=== PATIENT | female | born 1925 | race Caucasian/White ===

== ENCOUNTER 2016-05-31 17:14 | Inpatient (IN) | payer MEDICARE, BC ==
[~2016-05-31] VITALS: Ht 177.8 cm; Wt 113.2 kg
[~2016-05-31 17:14] MED LIST: GLIM1TAB2 PO; HYDR-971 PO; HYDR25TA9 PO; LOSA100T6 PO; METO50TA2 PO; SIMV20TA3 PO
[2016-05-31 18:58] LABS: CREATININE 1.5 mg/dL (0.6-1.0); GFR 32.8; POTASSIUM 4.4 mmol/L (3.5-5.1)
[2016-05-31 19:03] LABS: BASO % 1 % (0-3); EOS % 2 % (0-3); HEMATOCRIT 47.9 % (36.0-47.0); HEMOGLOBIN 16.1 g/dL (12.0-15.5); LYMPH # 1.7 x10^3/uL (1.0-4.8); LYMPH % 21 % (24-48); MEAN CORPUSCULAR HEMOGLOBIN 30 pg (25-35); MEAN CORPUSCULAR HGB CONC 34 g/dL (31-37); MEAN CORPUSCULAR VOLUME 89 fL (79-100); MONO % 8 % (0-9); NEUT % 69 % (31-73); PLATELET COUNT 164 x10^3/uL (140-400); RED BLOOD COUNT 5.35 x10^6/uL (3.50-5.40); RED CELL DISTRIBUTION WIDTH 13.9 % (11.5-14.5); WHITE BLOOD COUNT 8.2 x10^3/uL (4.0-11.0)
[2016-05-31 19:04] LABS: ALBUMIN 3.7 g/dL (3.4-5.0); ALBUMIN/GLOBULIN RATIO 0.9 (1.0-1.7); TOTAL BILIRUBIN 0.6 mg/dL (0.2-1.0)
[2016-05-31 19:25] LABS: OBC FLU VALID
[2016-05-31 19:37] LABS: BILIRUBIN,URINE NEGATIVE (NEG); GLUCOSE,URINE NEGATIVE (NEG); NITRITE,URINE NEGATIVE (NEG); PH,URINE 5.5; PROTEIN,URINE NEGATIVE (NEG-TRACE)
[2016-05-31 19:45] LABS: BACTERIA,URINE FEW /HPF (0-FEW); SQUAMOUS EPITHELIAL CELL,UR FEW /LPF; WBC,URINE 0 /HPF (0-4)
[2016-05-31] MEDS ORDERED: IV NORMAL SALINE 1000ML BAG 1,000 ML IV ONE (20:45)
[2016-05-31] MEDS ORDERED: ACET325T9 PO (21:59)
[2016-05-31 22:00] VITALS: BP 139/77
--- NOTE | 2016-05-31 22:04 | RAD ---
PROCEDURE Nuchal medicine V/Q scan HISTORY Dyspnea and elevated D-dimer TECHNIQUE 15.0 millicuries of xenon 133 gas was administered by inhalation and spot views were obtained on a gamma camera for a ventilation study. 5.0 millicuries of technetium 99 M maa was administered intravenously and spot views were obtained on a gamma camera for a perfusion examination. COMPARISON Correlation is made with the same-day chest x-ray. FINDINGS There is poor perfusion of the right lung. There is a large wedge-shaped defect in the lateral left lung. IMPRESSION High probability for pulmonary embolism. Electronically signed by: Donald Sams MD (May 31, 2016 22:04:21)
[2016-05-31 22:23] LABS: INR 1.2 (0.8-1.1)
[2016-05-31] MEDS ORDERED: HEPARIN for IV BOLUS 10,000 UNIT/10 ML VIAL. IV ONE (22:30)
[2016-05-31] MEDS ORDERED: HEPARIN 25,000UTS/500ML PREMIX 500 ML IV PRN (22:30)
[2016-05-31] MEDS ORDERED: HEPARIN for IV BOLUS 10,000 UNIT/10 ML VIAL. IV PRN ×2 (22:30)
[2016-05-31] MEDS ORDERED: ACETAMINOPHEN 325 MG TABLET. PO PRN (22:45)
[2016-05-31] MEDS ORDERED: ENOXAPARIN ** NOTE DOSE ** SYRINGE SQ ONE (23:00)
[2016-05-31] MEDS ORDERED: ENOXAPARIN ** NOTE DOSE ** SYRINGE SQ SCH (23:00)
[2016-05-31] MEDS: SIMVASTATIN 20 MG TABLET PO SCH (23:08)
--- NOTE | 2016-05-31 23:44 | ED.ADGEN ---
Past Medical History Past Medical History: Cancer, Diabetes-Type I, High Cholesterol, Hypertension, Other Additional Past Medical Histor: BREAST CA, NEUROPATHY Past Surgical History: Appendectomy, Cholecystectomy, Hysterectomy, Other Additional Past Surgical Histo: LUMPECTOMY LT BREAST, LT KIDNEY REMOVED, BI LAT KNEE REPLACEMENT, BACK SX, Alcohol Use: Rarely Drug Use: None Adult General Chief Complaint Chief Complaint: SHORTNESS OF BREATH HPI HPI Patient is a 89 year old woman, history of breast cancer status post treatment in remission, hypertension, hyperlipidemia, single kidney, who presents to the emergency department with complaint of shortness of breath over the past 5 days. Denies any sick contacts or exposures, any cough, any fevers or chills, any history of DVT or PE, any recent travel or surgery. She states the shortness of breath is worse with activity, improved when lying down. No chest pain. States that when she walks from her living room to her kitchen, she is "gasping for breath". Patient was seen by her primary care provider yesterday, and had laboratory studies done, was contacted and told that her d-dimer was very elevated and was told to come to the ED for additional evaluation. No swelling of the extremities. No weakness numbness or tingling. Review of Systems Review of Systems Constitutional: Denies fever or chills. [] Eyes: Denies change in visual acuity. [] HENT: Denies nasal congestion or sore throat. [] Respiratory: Denies cough, clinics shortness of breath. Cardiovascular: Denies chest pain or edema. [] GI: Denies abdominal pain, nausea, vomiting, bloody stools or diarrhea. [] : Denies dysuria. [] Musculoskeletal: Denies back pain or joint pain. [] Integument: Denies rash. [] Neurologic: Denies headache, focal weakness or sensory changes. [] Endocrine: Denies polyuria or polydipsia. [] Lymphatic: Denies swollen glands. [] Psychiatric: Denies depression or anxiety. [] Allergies Allergies Allergies Coded Allergies Type Severity Reaction Last Updated Verified Penicillins Adverse Reaction Mild YEAST INFECTION 02/21/16 Yes Physical Exam Physical Exam Constitutional: Well developed, well nourished, no acute distress, non-toxic appearance. [] HENT: Normocephalic, atraumatic, bilateral external ears normal, oropharynx moist, no oral exudates, nose normal. [] Eyes: PERRLA, EOMI, conjunctiva normal, no discharge. [] Neck: Normal range of motion, no tenderness, supple, no stridor. [] Cardiovascular:Heart rate regular rhythm, no murmur , S1, S2, rubs or gallops. [ ] Lungs & Thorax: Breath sounds diminished throughout, no rhonchi or rales identified. No chest or crepitus or tenderness.] Abdomen: Bowel sounds normal, soft, no tenderness, no rebound, rigidity, no guarding, no masses, no pulsatile masses. [] Skin: Warm, dry, no erythema, no rash. [] Back: No tenderness, no CVA tenderness. [] Extremities: No tenderness, no cyanosis, no clubbing, ROM intact, no edema. Negative Homans sign. [] Neurologic: Alert and oriented X 3, normal motor function, normal sensory function, no focal deficits noted. [] Psychologic: Affect normal, judgement normal, mood normal. [] Current Patient Data Vital Signs Vital Signs Date Time Temp Pulse Resp B/P Pulse Ox O2 Delivery O2 Flow Rate FiO2 05/31/16 19:20 69 184/82 94 Room Air 05/31/16 17:21 97.3 18 97.3 Lab Values Laboratory Tests Test 05/31/16 18:30 05/31/16 18:45 05/31/16 19:11 White Blood Count 8.2x10^3/uL (4.0-11.0) Red Blood Count 5.35x10^6/uL (3.50-5.40) Hemoglobin 16.1g/dL (12.0-15.5) H Hematocrit 47.9% (36.0-47.0) H Mean Corpuscular Volume 89fL (79-100) Mean Corpuscular Hemoglobin 30pg (25-35) Mean Corpuscular Hemoglobin Concent 34g/dL (31-37) Red Cell Distribution Width 13.9% (11.5-14.5) Platelet Count 164x10^3/uL (140-400) Neutrophils (%) (Auto) 69% (31-73) Lymphocytes (%) (Auto) 21% (24-48) L Monocytes (%) (Auto) 8% (0-9) Eosinophils (%) (Auto) 2% (0-3) Basophils (%) (Auto) 1% (0-3) Neutrophils # (Auto) 5.7x10^3uL (1.8-7.7) Lymphocytes # (Auto) 1.7x10^3/uL (1.0-4.8) Monocytes # (Auto) 0.6x10^3/uL (0.0-1.1) Eosinophils # (Auto) 0.1x10^3/uL (0.0-0.7) Basophils # (Auto) 0.0x10^3/uL (0.0-0.2) Prothrombin Time 14.0SEC (11.7-14.0) Prothrombin Time INR 1.2 (0.8-1.1) H PTT 22SEC (24-38) L D-Dimer ([place]) 7.76ug/mlFEU (0.00-0.50) H Sodium Level 140mmol/L (136-145) Potassium Level 4.4mmol/L (3.5-5.1) Chloride Level 105mmol/L (98-107) Carbon Dioxide Level 29mmol/L (21-32) Anion Gap 6 (6-14) Blood Urea Nitrogen 37mg/dL (7-20) H Creatinine 1.5mg/dL (0.6-1.0) H Estimated GFR (Cockcroft-Gault) 32.8 BUN/Creatinine Ratio 25 (6-20) H Glucose Level 123mg/dL (70-99) H Calcium Level 10.0mg/dL (8.5-10.1) Total Bilirubin 0.6mg/dL (0.2-1.0) Aspartate Amino Transferase (AST) 21U/L (15-37) Alanine Aminotransferase (ALT) 16U/L (14-59) Alkaline Phosphatase 118U/L (46-116) H Troponin I Quantitative < 0.017ng/mL (0.000-0.055) UM-Ftu-C-Type Natriuretic Peptide 246pg/mL (0-449) Total Protein 8.0g/dL (6.4-8.2) Albumin 3.7g/dL (3.4-5.0) Albumin/Globulin Ratio 0.9 (1.0-1.7) L Influenza Type A Antigen Negative (NEGATIVE) Influenza Type B Antigen Negative (NEGATIVE) Urine Collection Type Unknown Urine Color Yellow Urine Clarity Clear Urine pH 5.5 Urine Specific [place] 1.020 Urine Protein Negativemg/dL (NEG-TRACE) Urine Glucose (UA) Negativemg/dL (NEG) Urine Ketones (Stick) Negativemg/dL (NEG) Urine Blood Negative (NEG) Urine Nitrite Negative (NEG) Urine Bilirubin Negative (NEG) Urine Urobilinogen Dipstick 1.0mg/dL (0.2 mg/dL) Urine Leukocyte Esterase Negative (NEG) Urine RBC 1-2/HPF (0-2) Urine WBC 0/HPF (0-4) Urine Squamous Epithelial Cells Few/LPF Urine Bacteria Few/HPF (0-FEW) Laboratory Tests 05/31/16 18:30 Laboratory Tests 05/31/16 18:30 EKG EKG ECG: Sinus rhythm, heart rate 68 beats minute, left axis deviation, QTC of 436, [place] of 200, QRS of 82, contour abnormalities noted in the anterior septal leads, abnormal ECG, does not meet STEMI criteria. As interpreted by me. [] Radiology/Procedures Radiology/Procedures Chest x-ray: One view: Normal cardiac silhouette, patient with atelectasis noted in the left lower lobe. No pneumothorax, no effusions, no bony or soft tissue abnormalities verified. As interpreted by me. [] Impressions: [facility] [address] [place], [place] [id number] IMAGING REPORT Signed PATIENT: LINDA CAMPBELL ACCOUNT: [id number] : 1925 LOCATION: [address] [place] [address] AGE: 89 SEX: F EXAM STATUS: ADM IN ORD. PHYSICIAN: OBEY CHRISTIANSON DO REASON: SOB/elevated ddimer PROCEDURE: LUNG VENT/PERFUSION SCAN(VQ) PROCEDURE Nuchal medicine V/Q scan HISTORY Dyspnea and elevated D-dimer TECHNIQUE 15.0 millicuries of xenon 133 gas was administered by inhalation and spot views were obtained on a gamma camera for a ventilation study. 5.0 millicuries of technetium 99 M maa was administered intravenously and spot views were obtained on a gamma camera for a perfusion examination. COMPARISON Correlation is made with the same-day chest x-ray. FINDINGS There is poor perfusion of the right lung. There is a large wedge-shaped defect in the lateral left lung. IMPRESSION High probability for pulmonary embolism. Electronically signed by: Indra Mitchell MD (May 31, 2016 22:04:21) DICTATED and SIGNED BY: INDRA MITCHELL III, MD DATE: 05/31/162202 CC: OBEY CHRISTIANSON DO; MEET REESE Jr, MD ~ Course & Med Decision Making Course & Med Decision Making Pertinent Labs and Imaging studies reviewed. (See chart for details) Patient's oxygen saturation is 96% room air, respiratory rate is 20 and unlabored, heart rate is in the 60s to 70s, she is normotensive in the emergency department. Due to patient having only one kidney, with a creatinine of 1.5, will be unable to obtain CT of the chest to evaluate for PE, patient is agreeable for admission hospital for evaluation of her shortness of breath and dyspnea and exertion, will obtain a VQ scan tonight, and if V/Q scan is negative , proceed with additional evaluation of her shortness of breath, or treat findings a V/Q appropriately. Troponin is negative and the emergency department , creatinine is 1.5 as stated, with a blood urea nitrogen of 37. Influenza swab is negative. Patient initiated on IV hydration. I spoke with the crop and soil technician, who will arrange for the VQ study to be obtained over the next several hours. At this time the patient is resting comfortably, stable in sinus rhythm on the monitor. I did discuss findings as above with Dr. Ontiveros of internal medicine, patient was accepted to her service as a full admission to the medical telemetry floor, with plan to obtain V/Q study, and to proceed with treatment and evaluation as indicated. Patient was transferred for the VQ study , and then onto a floor bed. Results of V/Q study indicated high probability for PE. Nurse April did contact the floor at my request, in order to ensure that information was relayed to the patient, and to make myself available to the patient if she had additional questions. Heparin protocol was ordered. I was informed that Dr. Ontiveros was with the patient and would be initiating anticoagulation. Dragon Disclaimer Dragon Disclaimer This electronic medical record was generated, in whole or in part, using a voice recognition dictation system. Departure Impression: Primary Impression: LEO (dyspnea on exertion) Additional Impressions: Pulmonary embolus History of breast cancer Disposition: 09 ADMITTED INPATIENT Admitting Physician: Other Condition: STABLE Problem Qualifiers Additional Impressions: Pulmonary embolus Pulmonary embolism type: other Chronicity: unspecified Acute cor pulmonale presence: without acute cor pulmonale Qualified Code: I26.99 - Other pulmonary embolism without acute cor pulmonale OBEY CHRISTIANSON DO May 31, 2016 23:43
--- NOTE | 2016-06-01 00:44 | HP ---
ADMIT DATE: 05/31/2016 CHIEF COMPLAINT: Shortness of breath. HISTORY OF PRESENT ILLNESS: The patient is an 89-year-old woman in excellent state of health, who had noted about 2 weeks ago to be dyspneic on exertion. She is doing well at rest, but as soon as she is getting up for actually minimal walking inside her house, she becomes very dyspneic. This had gotten significantly worse on Friday. She, therefore, tried to get an appointment with her primary care physician on Friday, but was unable to get an appointment until her daughter called again to impress the urgency of her symptoms. D-dimer obtained yesterday at her PCP's apparently was very high, number not available here. She presented to the Emergency Room for further workup today. D-dimer here was 7. Because she has a single kidney with a creatinine of 1.6, a CTA was omitted in favor of a VQ scan, which reportedly is positive for PE. 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 FAMILY HISTORY: Significant for father and multiple siblings with CAD. SOCIAL HISTORY: Lives by herself. No toxic habits. ALLERGIES: PENICILLINS (CAUSING YEAST VAGINITIS). MEDICATIONS: Home medications reconciled with MAR. REVIEW OF SYSTEMS: Positive as per HPI. The patient specifically denies any chest pain, cough, fevers, chills, URI symptoms, nausea, vomiting, diarrhea or abdominal pain. Rest of organ system review was completely negative. PHYSICAL EXAMINATION: VITAL SIGNS: Show a blood pressure of 186/84, respiratory rate at 18, pulse at 66, pulse ox at 92% on room air. She is afebrile. GENERAL: This is an obese 89-year-old woman, appearing younger than her stated age, alert and oriented, in no acute distress. HEENT: Shows no scleral icterus. NECK: Supple. LUNGS: Clear to auscultation bilaterally. HEART: Has regular rate and rhythm. ABDOMEN: Has positive bowel sounds, soft and nontender. EXTREMITIES: Show no edema. Large scar over her left upper extremity proximal to her elbow from melanoma resection. EXTREMITIES: Lower extremities show no edema. SKIN: Warm, soft and dry. Multiple keratoses (seborrheic) scattered all over. LABORATORY DATA: CBC with a WBC of 8.2, hemoglobin of 16.1, platelets of 164. Chemistries with a BUN and creatinine of 37 and 1.5. Electrolytes within normal limits. AST and ALT normal, alkaline phosphatase minimally elevated at 118, normal troponin, normal BNP, D-dimer at 7.76, INR at 1.2. Flu A and B negative. RADIOGRAPHIC STUDIES: Chest x-ray reviewed by myself from the Emergency Room shows no cardiopulmonary abnormalities. VQ scan was actually read by the radiologist and showed high probability for pulmonary embolism with poor perfusion in the right lung and a large wedge-shaped defect in the lateral left lung. ASSESSMENT AND PLAN: The patient is an 89-year-old woman with new diagnosis of pulmonary embolism. She will be started on Lovenox and hopefully transition to an oral thrombin inhibitor rather than Coumadin down the road. The etiology of her blood clot is unclear at this point. No lower extremity symptoms have been noted. We will obtain ultrasound of her lower extremities in a.m. Formation of blood clots is somewhat ominous, given her recent history of melanoma. We will treat the pulmonary embolisms for now. She is scheduled to undergo routine scans by her oncologist next month. We will also rule out any underlying heart issues and obtain echo to rule out any thrombi there. We will continue all her home medications for the time being and monitor her blood sugars with insulin sliding scale as well. ALLYN OSORIO MD DR: UR/nts JOB#: [id number] / [id number] MEET Cantrell MD
[2016-06-01 03:59] VITALS: BP 107/55
[2016-06-01] MEDS ORDERED: METOPROLOL TART IMMED RELEASE 50 MG TABLET PO SCH (07:00)
[2016-06-01 07:45] VITALS: BP 173/79
--- NOTE | 2016-06-01 08:31 | RAD ---
Portable chest, 05/31/2016: History: Shortness of breath Comparison is made to a study from 04/23/2004. The heart size and pulmonary vascularity are normal. There is mild apical scarring. No pulmonary infiltrate is seen. There is no evidence of pleural fluid. Moderate spurring is present in the spine. IMPRESSION: No acute cardiopulmonary abnormality is detected.
[2016-06-01] MEDS: GLIMEPIRIDE 2 MG TABLET PO SCH (08:38)
[2016-06-01] MEDS: HYDROCHLOROTHIAZIDE 25 MG TABLET PO SCH (08:40)
[2016-06-01] MEDS: LOSARTAN POTASSIUM 50 MG TABLET. PO SCH (08:40)
[2016-06-01] MEDS: METOPROLOL TART IMMED RELEASE 50 MG TABLET PO SCH (08:41)
[2016-06-01] MEDS: HYDROCODONE/APAP 5/325MG TABLET. PO SCH ×3 (08:41→21:00)
[2016-06-01 11:30] VITALS: BP 151/76
--- NOTE | 2016-06-01 12:10 | EKG ---
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
[2016-06-01 15:10] VITALS: BP 121/63
[2016-06-01] MEDS ORDERED: DABI150C PO (15:43)
[2016-06-01 19:00] VITALS: BP 137/74
[2016-06-01] MEDS: SIMVASTATIN 20 MG TABLET PO SCH (20:26)
--- NOTE | 2016-06-01 21:01 | PDOC ---
PROGRESS NOTES Chief Complaint Chief Complaint LEO ASSESSMENT AND PLAN: 1. PE bilat: started on lovenox with plans to switching to PO pradaxa (renal dosing) on O/P basis. script sent to pharmacy 2. LEO: sl improved. 6 min walk tomorrow to [id number] need for suppl O2. 3. echo pending for AM. 4. Dispo: prob home in AM Vitals Vitals Vital Signs Date Time Temp Pulse Resp B/P Pulse Ox O2 Delivery O2 Flow Rate FiO2 06/01/16 15:10 97.4 73 16 121/63 95 Room Air 97.4 Physical Exam General: Alert, Oriented X3, Cooperative, No acute distress Heart: Regular rate Lungs: Clear Abdomen: Normal bowel sounds, Other Extremities: No clubbing, No edema Skin: No rashes, No significant lesion Labs LABS Laboratory Tests Test 06/01/16 07:51 06/01/16 11:44 06/01/16 16:25 Glucose (Fingerstick) 124mg/dL (70-99) 125mg/dL (70-99) 125mg/dL (70-99) Review of Systems Review of Systems had some pain earlier in distal medial lockett, now resolved. was concerned this may indicate DVT ALLYN OSORIO MD Jun 01, 2016 21:01
[2016-06-01] MEDS: ZOLPIDEM 5 MG TABLET. PO SCH (21:22)
[2016-06-01] MEDS: ENOXAPARIN ** NOTE DOSE ** SYRINGE SQ SCH (21:23)
[2016-06-01 23:00] VITALS: BP 130/67
[2016-06-02 03:00] VITALS: BP 133/78
[2016-06-02 07:00] VITALS: BP 135/81
[2016-06-02] MEDS: HYDROCODONE/APAP 5/325MG TABLET. PO SCH ×2 (09:00→14:00)
[2016-06-02] MEDS: ENOXAPARIN ** NOTE DOSE ** SYRINGE SQ SCH ×2 (09:15→20:56)
[2016-06-02] MEDS: HYDROCHLOROTHIAZIDE 25 MG TABLET PO SCH (09:15)
[2016-06-02] MEDS: METOPROLOL TART IMMED RELEASE 50 MG TABLET PO SCH (09:16)
[2016-06-02] MEDS: GLIMEPIRIDE 2 MG TABLET PO SCH (09:16)
[2016-06-02] MEDS: LOSARTAN POTASSIUM 50 MG TABLET. PO SCH (09:16)
[2016-06-02 11:12] VITALS: BP 131/67
[2016-06-02 15:09] VITALS: BP 146/73
--- NOTE | 2016-06-02 15:09 | CARD ---
APPROVED REPORT EXAM: Two-dimensional and M-mode echocardiogram with Doppler and color Doppler. Other Information Quality : LimitedHR: 80bpm Rhythm : NSR INDICATION SOB 2D DIMENSIONS RVDd2.5 (2.9-3.5cm)Left Atrium(2D)4.2 (1.6-4.0cm) IVSd1.0 (0.7-1.1cm)Aortic Root(2D)3.1 (2.0-3.7cm) LVDd3.5 (3.9-5.9cm)LVOT Diameter2.3 (1.8-2.4cm) PWd0.1 (0.7-1.1cm)LVDs2.5 (2.5-4.0cm) FS (%) 29.2 %SV29.6 ml LVEF(%)57.0 (>50%) Aortic Valve AoV Peak Armando.172.9cm/sAoV VTI35.3cm AO Peak GR.12.0mmHgLVOT VTI 25.96cm AO Mean GR.8mmHg Mitral Valve MV E Woilajwe41.1cm/sMV E Peak Gr.7mmHg MV DECEL [id number] A Nqxdoddd954.2cm/s MV E Mean Gr.2mmHgE/A Ratio0.7 MV A [id number] TDI Lateral E' P. V9.78cm/sMedial E' P. V7.79cm/s E/Lateral E'8.3E/Medial E'10.4 Pulmonary Vein S1 Xfkpuuzq77.5cm/sS2 Gfoknwvw20.14cm/s D2 Tysfxqtu45.1cm/sPVa [id number] LEFT VENTRICLE The left ventricle is normal size. There is normal left ventricular wall thickness. The left ventricu lar systolic function is normal. The Ejection Fraction is 55-60%. There is normal LV segmental wall m otion. Transmitral Doppler flow pattern is Grade I-abnormal relaxation pattern. RIGHT VENTRICLE The right ventricle is normal size. There is normal right ventricular wall thickness. The right ventr icular systolic function is normal. ATRIA The left atrium is mildly dilated. The right atrium size is normal. The interatrial septum is intact with no evidence for an atrial septal defect or patent foramen ovale as noted on 2-D or Doppler imagi ng. AORTIC VALVE The aortic valve is not well visualized. Doppler and Color Flow revealed no significant aortic regurg itation. There is no significant aortic valvular stenosis. MITRAL VALVE The mitral valve is not well visualized. There is no evidence of mitral valve prolapse at exam time. There is no mitral valve stenosis. Doppler and Color Flow revealed no mitral valve regurgitation note d. TRICUSPID VALVE The tricuspid valve is not well visualized. Doppler and Color Flow revealed trace tricuspid valve reg urgitation. PULMONIC VALVE The pulmonic valve is not well visualized. Doppler and Color Flow revealed no pulmonic valvular regur gitation. There is no pulmonic valvular stenosis. GREAT VESSELS The aortic root is normal in size. The ascending aorta is normal in size. The pulmonary artery is nor mal. The IVC is normal in size and collapses >50% with inspiration. PERICARDIAL EFFUSION There is no evidence of significant pericardial effusion. Critical Notification Critical Value: No <Conclusion> The left ventricular systolic function is normal. The Ejection Fraction is 55-60%. There is normal LV segmental wall motion. Transmitral Doppler flow pattern is Grade I-abnormal relaxation pattern. Trace tricuspid valve regurgitation. There is no evidence of significant pericardial effusion.
--- NOTE | 2016-06-02 16:26 | PDOC ---
PROGRESS NOTES Chief Complaint Chief Complaint LEO ASSESSMENT AND PLAN: 1. PE bilat: started on lovenox with plans to switching to PO pradaxa (renal dosin mg bid) on O/P basis. 2. LEO: sl improved. 6 min walk tomorrow to assess need for suppl O2. 3. Echo WNL 4. Dispo: home in AM Vitals Vitals Vital Signs Date Time Temp Pulse Resp B/P Pulse Ox O2 Delivery O2 Flow Rate FiO2 06/02/16 15:09 97.7 64 18 146/73 94 Room Air 97.7 Physical Exam General: Alert, Oriented X3, Cooperative, No acute distress Heart: Regular rate Lungs: Clear Abdomen: Normal bowel sounds, Other Extremities: No clubbing, No edema Skin: No rashes, No significant lesion Labs LABS Laboratory Tests Test 06/01/16 16:25 06/01/16 21:06 06/02/16 07:22 06/02/16 10:36 Glucose (Fingerstick) 125mg/dL (70-99) 200mg/dL (70-99) 142mg/dL (70-99) 245mg/dL (70-99) Test 06/02/16 15:58 Glucose (Fingerstick) 99mg/dL (70-99) Review of Systems Review of Systems LEO improving, but very short-winded with washing up this AM Comment Review of Relevant I have reviewed the following items harrison (where applicable) has been applied. Labs Laboratory Tests Test 05/31/16 18:30 05/31/16 18:45 05/31/16 19:11 06/01/16 07:51 White Blood Count 8.2x10^3/uL (4.0-11.0) Red Blood Count 5.35x10^6/uL (3.50-5.40) Hemoglobin 16.1g/dL (12.0-15.5) Hematocrit 47.9% (36.0-47.0) Mean Corpuscular Volume 89fL (79-100) Mean Corpuscular Hemoglobin 30pg (25-35) Mean Corpuscular Hemoglobin Concent 34g/dL (31-37) Red Cell Distribution Width 13.9% (11.5-14.5) Platelet Count 164x10^3/uL (140-400) Neutrophils (%) (Auto) 69% (31-73) Lymphocytes (%) (Auto) 21% (24-48) Monocytes (%) (Auto) 8% (0-9) Eosinophils (%) (Auto) 2% (0-3) Basophils (%) (Auto) 1% (0-3) Neutrophils # (Auto) 5.7x10^3uL (1.8-7.7) Lymphocytes # (Auto) 1.7x10^3/uL (1.0-4.8) Monocytes # (Auto) 0.6x10^3/uL (0.0-1.1) Eosinophils # (Auto) 0.1x10^3/uL (0.0-0.7) Basophils # (Auto) 0.0x10^3/uL (0.0-0.2) Prothrombin Time 14.0SEC (11.7-14.0) Prothromb Time International Ratio 1.2 (0.8-1.1) Activated Partial Thromboplast Time 22SEC (24-38) D-Dimer ([place]) 7.76ug/mlFEU (0.00-0.50) Sodium Level 140mmol/L (136-145) Potassium Level 4.4mmol/L (3.5-5.1) Chloride Level 105mmol/L (98-107) Carbon Dioxide Level 29mmol/L (21-32) Anion Gap 6 (6-14) Blood Urea Nitrogen 37mg/dL (7-20) Creatinine 1.5mg/dL (0.6-1.0) Estimated GFR (Cockcroft-Gault) 32.8 BUN/Creatinine Ratio 25 (6-20) Glucose Level 123mg/dL (70-99) Calcium Level 10.0mg/dL (8.5-10.1) Total Bilirubin 0.6mg/dL (0.2-1.0) Aspartate Amino Transf (AST/SGOT) 21U/L (15-37) Alanine Aminotransferase (ALT/SGPT) 16U/L (14-59) Alkaline Phosphatase 118U/L (46-116) Troponin I Quantitative < 0.017ng/mL (0.000-0.055) RX-Hyc-T-Type Natriuretic Peptide 246pg/mL (0-449) Total Protein 8.0g/dL (6.4-8.2) Albumin 3.7g/dL (3.4-5.0) Albumin/Globulin Ratio 0.9 (1.0-1.7) Influenza Type A Antigen Negative (NEGATIVE) Influenza Type B Antigen Negative (NEGATIVE) Urine Collection Type Unknown Urine Color Yellow Urine Clarity Clear Urine pH 5.5 Urine Specific [place] 1.020 Urine Protein Negativemg/dL (NEG-TRACE) Urine Glucose (UA) Negativemg/dL (NEG) Urine Ketones (Stick) Negativemg/dL (NEG) Urine Blood Negative (NEG) Urine Nitrite Negative (NEG) Urine Bilirubin Negative (NEG) Urine Urobilinogen Dipstick 1.0mg/dL (0.2 mg/dL) Urine Leukocyte Esterase Negative (NEG) Urine RBC 1-2/HPF (0-2) Urine WBC 0/HPF (0-4) Urine Squamous Epithelial Cells Few/LPF Urine Bacteria Few/HPF (0-FEW) Glucose (Fingerstick) 124mg/dL (70-99) Test 06/01/16 11:44 06/01/16 16:25 06/01/16 21:06 06/02/16 07:22 Glucose (Fingerstick) 125mg/dL (70-99) 125mg/dL (70-99) 200mg/dL (70-99) 142mg/dL (70-99) Test 06/02/16 10:36 06/02/16 15:58 Glucose (Fingerstick) 245mg/dL (70-99) 99mg/dL (70-99) Laboratory Tests Test 06/01/16 16:25 06/01/16 21:06 06/02/16 07:22 06/02/16 10:36 Glucose (Fingerstick) 125mg/dL (70-99) 200mg/dL (70-99) 142mg/dL (70-99) 245mg/dL (70-99) Test 06/02/16 15:58 Glucose (Fingerstick) 99mg/dL (70-99) Medications Current Medications Sodium Chloride (Iv Sodium Chloride 0.9% 1000ml Bag) 1,000 ml @ 75 mls/hr 1X ONCE IV Last administered on 05/31/16t 21:02; Start 05/31/16 at 20:45; Stop at 10:04; Status DC Heparin Sodium (Porcine) 8800 unit 8,800 unit 1X ONCE IV ; Start 05/31/16 at 22 :30; Stop 05/31/16 at 22:45; Status DC Heparin Sodium/ Dextrose 500 ml @ 0 mls/hr CONT PRN IV SEE I/O RECORD; Start at 22:30; Status Cancel Heparin Sodium (Porcine) 3,300 unit PRN Q6HRS PRN IV FOR UFH LEVEL LESS THAN 0.2; Start 05/31/16 at 22:30; Status Cancel Heparin Sodium (Porcine) 1,650 unit PRN Q6HRS PRN IV FOR UFH LEVEL 0.2 - 0.29; Start 05/31/16 at 22:30; Status Cancel Warfarin Sodium (Coumadin Per Pharmacy) 1 each PRN DAILY PRN MC PER PROTOCOL; Start 05/31/16 at 22:15; Status UNV Acetaminophen (Tylenol) 650 mg PRN QHS PRN PO INSOM; Start 05/31/16 at 22:45 Hydrochlorothiazide (Hydrodiuril) 25 mg DAILY PO Last administered on 09:15; Start 06/01/16 at 09:00 Acetaminophen/ Hydrocodone Bitart (Lortab 5/325) 1 tab TID PO ; Start 06/01/16 at 09:00; Stop 06/02/16 at 15:54; Status DC Metoprolol Tartrate (Lopressor) 50 mg DAILY07 PO ; Start 06/01/16 at 07:00; Stop 06/01/16 at 07:00; Status DC Simvastatin (Zocor) 20 mg HS PO Last administered on 06/01/16 20:26; Start at 23:00 Glimepiride (Amaryl) 1 mg DAILY PO Last administered on 06/02/16 09:16; Start 06/01/16 at 09:00 Losartan Potassium (Cozaar) 100 mg DAILY PO Last administered on 06/02/16 09: 16; Start 06/01/16 at 09:00 Enoxaparin Sodium (Lovenox 120mg Syringe) 120 mg Q12HR SQ ; Start 05/31/16 at 23 :00; Stop 05/31/16 at 23:00; Status DC Enoxaparin Sodium (Lovenox 120mg Syringe) 110 mg ONCE ONCE SQ Last administered on 05/31/16 23:09; Start 05/31/16 at 23:00; Stop 05/31/16 at 23:01 ; Status DC Metoprolol Tartrate (Lopressor) 50 mg DAILY PO Last administered on 06/02/16 09:16; Start 06/01/16 at 09:00 Enoxaparin Sodium (Lovenox 60mg Syringe) 60 mg Q12HR SQ Last administered on 09:15; Start 06/01/16 at 21:15 Zolpidem Tartrate (Ambien) 5 mg QHS PO Last administered on 06/01/16 21:22; Start 06/01/16 at 21:15 Active Scripts Active Pradaxa (Dabigatran Etexilate Mesylate) 150 Mg Capsule 0.5 Cap PO BID Reported Tylenol (Acetaminophen) 325 Mg Tablet 1-2 Tab PO PRN QHS PRN [place] 5-325 Tablet (Acetaminophen/Hydrocodone Bitart) 1 Each Tablet 1 Tab PO TID Losartan Potassium 100 Mg Tablet 100 Mg PO DAILY Glimepiride 1 Mg Tablet 1 Mg PO DAILY Simvastatin 20 Mg Tablet 20 Mg PO HS Metoprolol Tartrate 50 Mg Tablet 50 Mg PO DAILY07 Hydrochlorothiazide Tablet (Hydrochlorothiazide) 25 Mg Tablet 25 Mg PO DAILY Vitals/I & O Vital Sign - Last 24 Hours 06/01/16 06/01/16 06/02/16 06/02/16 19:00 23:00 03:00 07:00 Temp 98.6 97.9 97.6 97.7 98.6 97.9 97.6 97.7 Pulse 72 77 68 73 Resp 16 18 16 18 B/P 137/74 130/67 133/78 135/81 Pulse Ox 93 96 92 96 O2 Delivery Room Air 06/02/16 06/02/16 06/02/16 06/02/16 08:00 09:16 09:16 11:12 Temp 97.7 97.7 Pulse 73 73 71 Resp 18 B/P 135/81 135/81 131/67 Pulse Ox 96 O2 Delivery Room Air Room Air 06/02/16 15:09 Temp 97.7 97.7 Pulse 64 Resp 18 B/P 146/73 Pulse Ox 94 O2 Delivery Room Air Intake and Output 06/01/16 06/01/16 06/02/16 15:00 23:00 07:00 Intake Total 900 ml 440 ml Balance 900 ml 440 ml ALLYN OSORIO MD Jun 02, 2016 16:26
[2016-06-02 19:00] VITALS: BP 139/69
[2016-06-02] MEDS: ZOLPIDEM 5 MG TABLET. PO SCH (20:56)
[2016-06-02] MEDS: SIMVASTATIN 20 MG TABLET PO SCH (20:56)
[2016-06-02 22:55] VITALS: BP 126/73
[2016-06-03 03:00] VITALS: BP 122/81
[2016-06-03 07:00] VITALS: BP 155/72
[2016-06-03] MEDS: LOSARTAN POTASSIUM 50 MG TABLET. PO SCH (09:21)
[2016-06-03] MEDS: METOPROLOL TART IMMED RELEASE 50 MG TABLET PO SCH (09:21)
[2016-06-03] MEDS: HYDROCHLOROTHIAZIDE 25 MG TABLET PO SCH (09:21)
[2016-06-03] MEDS: ENOXAPARIN ** NOTE DOSE ** SYRINGE SQ SCH (09:21)
[2016-06-03] MEDS: GLIMEPIRIDE 2 MG TABLET PO SCH (09:21)
--- NOTE | 2016-06-03 11:10 | PDOC ---
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 with minor exertion Never had it before NO triggering factors Mentions a family with leg clots hx echo ok PLAN: Involve pulmo dc lovenox - solitary kidney To start heparin gtt - dw pulmo and rN Check renal sono Dw pt and family Add pT/OT mIght need emeli heck 6MW - ordered, not yet done Vitals Vitals Vital Signs Date Time Temp Pulse Resp B/P Pulse Ox O2 Delivery O2 Flow Rate FiO2 06/03/16 09:21 68 155/72 06/03/16 07:00 97.7 17 96 Room Air 97.7 Physical Exam General: Alert, Oriented X3, Cooperative, No acute distress Heart: Regular rate Lungs: Clear Abdomen: Normal bowel sounds, Other Extremities: No clubbing, No edema Skin: No rashes, No significant lesion Labs LABS Laboratory Tests Test 06/02/16 15:58 06/02/16 20:59 06/03/16 07:05 Glucose (Fingerstick) 99mg/dL (70-99) 243mg/dL (70-99) 117mg/dL (70-99) Review of Systems Review of Systems soa, no cp, leg swelling, mild, no fevers Assessment and Plan Assessmemt and Plan Problems Medical Problems: (1) LEO (dyspnea on exertion) Status: Acute (2) History of breast cancer Status: Acute (3) Pulmonary embolism Status: Acute (4) Pulmonary embolus Status: Acute Problems: Comment Review of Relevant I have reviewed the following items harrison (where applicable) has been applied. Labs Laboratory Tests Test 06/01/16 11:44 06/01/16 16:25 06/01/16 21:06 06/02/16 07:22 Glucose (Fingerstick) 125mg/dL (70-99) 125mg/dL (70-99) 200mg/dL (70-99) 142mg/dL (70-99) Test 06/02/16 10:36 06/02/16 15:58 06/02/16 20:59 06/03/16 07:05 Glucose (Fingerstick) 245mg/dL (70-99) 99mg/dL (70-99) 243mg/dL (70-99) 117mg/dL (70-99) Laboratory Tests Test 06/02/16 15:58 06/02/16 20:59 06/03/16 07:05 Glucose (Fingerstick) 99mg/dL (70-99) 243mg/dL (70-99) 117mg/dL (70-99) Medications Current Medications Sodium Chloride (Iv Sodium Chloride 0.9% 1000ml Bag) 1,000 ml @ 75 mls/hr 1X ONCE IV Last administered on 05/31/16 21:02; Start 05/31/16 at 20:45; Stop at 10:04; Status DC Heparin Sodium (Porcine) 8800 unit 8,800 unit 1X ONCE IV ; Start 05/31/16 at 22 :30; Stop 05/31/16 at 22:45; Status DC Heparin Sodium/ Dextrose 500 ml @ 0 mls/hr CONT PRN IV SEE I/O RECORD; Start at 22:30; Status Cancel Heparin Sodium (Porcine) 3,300 unit PRN Q6HRS PRN IV FOR UFH LEVEL LESS THAN 0.2; Start 05/31/16 at 22:30; Status Cancel Heparin Sodium (Porcine) 1,650 unit PRN Q6HRS PRN IV FOR UFH LEVEL 0.2 - 0.29; Start 05/31/16 at 22:30; Status Cancel Warfarin Sodium (Coumadin Per Pharmacy) 1 each PRN DAILY PRN MC PER PROTOCOL; Start 05/31/16 at 22:15; Status UNV Acetaminophen (Tylenol) 650 mg PRN QHS PRN PO INSOM; Start 05/31/16 at 22:45 Hydrochlorothiazide (Hydrodiuril) 25 mg DAILY PO Last administered on 09:21; Start 06/01/16 at 09:00 Acetaminophen/ Hydrocodone Bitart (Lortab 5/325) 1 tab TID PO ; Start 06/01/16 at 09:00; Stop 06/02/16 at 15:54; Status DC Metoprolol Tartrate (Lopressor) 50 mg DAILY07 PO ; Start 06/01/16 at 07:00; Stop 06/01/16 at 07:00; Status DC Simvastatin (Zocor) 20 mg HS PO Last administered on 06/02/16 20:56; Start at 23:00 Glimepiride (Amaryl) 1 mg DAILY PO Last administered on 06/03/16 09:21; Start 06/01/16 at 09:00 Losartan Potassium (Cozaar) 100 mg DAILY PO Last administered on 06/03/16 09: 21; Start 06/01/16 at 09:00 Enoxaparin Sodium (Lovenox 120mg Syringe) 120 mg Q12HR SQ ; Start 05/31/16 at 23 :00; Stop 05/31/16 at 23:00; Status DC Enoxaparin Sodium (Lovenox 120mg Syringe) 110 mg ONCE ONCE SQ Last administered on 05/31/16 23:09; Start 05/31/16 at 23:00; Stop 05/31/16 at 23:01 ; Status DC Metoprolol Tartrate (Lopressor) 50 mg DAILY PO Last administered on 06/03/16 09:21; Start 06/01/16 at 09:00 Enoxaparin Sodium (Lovenox 60mg Syringe) 60 mg Q12HR SQ Last administered on 09:21; Start 06/01/16 at 21:15 Zolpidem Tartrate (Ambien) 5 mg QHS PO Last administered on 06/02/16 20:56; Start 06/01/16 at 21:15 Active Scripts Active Pradaxa (Dabigatran Etexilate Mesylate) 150 Mg Capsule 0.5 Cap PO BID Reported Tylenol (Acetaminophen) 325 Mg Tablet 1-2 Tab PO PRN QHS PRN [place] 5-325 Tablet (Acetaminophen/Hydrocodone Bitart) 1 Each Tablet 1 Tab PO TID Losartan Potassium 100 Mg Tablet 100 Mg PO DAILY Glimepiride 1 Mg Tablet 1 Mg PO DAILY Simvastatin 20 Mg Tablet 20 Mg PO HS Metoprolol Tartrate 50 Mg Tablet 50 Mg PO DAILY07 Hydrochlorothiazide Tablet (Hydrochlorothiazide) 25 Mg Tablet 25 Mg PO DAILY Vitals/I & O Vital Sign - Last 24 Hours 06/02/16 06/02/16 06/02/16 06/02/16 11:12 15:09 19:00 20:07 Temp 97.7 97.7 98.1 97.7 97.7 98.1 Pulse 71 64 71 Resp 18 18 18 B/P 131/67 146/73 139/69 Pulse Ox 96 94 95 O2 Delivery Room Air Room Air Room Air Room Air 06/02/16 06/03/16 06/03/16 06/03/16 22:55 03:00 07:00 09:21 Temp 97.9 97.9 97.7 97.9 97.9 97.7 Pulse 79 71 68 68 Resp 18 19 17 B/P 126/73 122/81 155/72 155/72 Pulse Ox 93 94 96 O2 Delivery Room Air Room Air Room Air 06/03/16 09:21 Pulse 68 B/P 155/72 Intake and Output 06/02/16 06/02/16 06/03/16 15:01 23:01 07:01 Intake Total 240 ml 840 ml Output Total 600 ml Balance 240 ml 240 ml KADIE NGUYEN MD Jun 03, 2016 11:10
[2016-06-03] MEDS ORDERED: HEPARIN for IV BOLUS 10,000 UNIT/10 ML VIAL. IV PRN ×2 (11:15)
[2016-06-03 11:17] VITALS: BP 148/73
--- NOTE | 2016-06-03 11:58 | PDOC ---
Provider Note Provider Note dictated see orders AGGIE LYNN MD Jun 03, 2016 11:58
[2016-06-03] MEDS: HEPARIN 25,000UTS/500ML PREMIX 500 ML IV PRN (11:59)
--- NOTE | 2016-06-03 12:55 | CONS ---
DATE OF CONSULTATION: ATTENDING PHYSICIAN: Dr. Ontiveros. REASON FOR CONSULTATION: Pulmonary embolism. HISTORY OF PRESENT ILLNESS: The patient is a pleasant 89-year-old female who is still very active and in good health. She has a history of multiple cancers including breast cancer, status post treatment and remission many years ago. She also has a history of melanoma resected from her left upper extremity last year and also history of renal cancer, status post nephrectomy. She was brought into the hospital after she complained of shortness of breath over the past week or so. She had no chest pain. She is not fully ambulatory. But, usually does her activities of daily living. The patient has no known prior history of deep vein thrombosis or pulmonary embolism. Because of her renal compromise, CTA of the chest was not done and ____ VQ scan was done. I reviewed the CT chest, there was poor perfusion in the right lung and there was a right large wedge-shaped defect in the left lung and these were consistent with high probability for pulmonary embolism. The patient was started on Lovenox and I have been asked to see her for further evaluation. PAST MEDICAL HISTORY: Significant for history of breast cancer with partial mastectomy and axillary node dissection in 1992. History of renal cell cancer treated with left nephrectomy in 2009. History of melanoma of the left upper extremity excised in 12/2015. According to her, the last PET scan had shown no recurrence in 2016. PAST SURGICAL HISTORY: History of surgeries as discussed above. FAMILY HISTORY: No family history of thromboembolic disease. SOCIAL HISTORY: Lives by herself. No tobacco or alcohol use. ALLERGIES: PENICILLIN, WHICH CAUSES YEAST VAGINITIS. MEDICATIONS: Reviewed as listed in the MRAD. REVIEW OF SYSTEMS: A 14-point system obtained. Pertinent positives discussed in my history of present illness, otherwise noncontributory. All systems that were negative were reviewed as well. PHYSICAL EXAMINATION: VITAL SIGNS: Blood pressure 148/73. She has a pulse ox of 96% on room air, afebrile. HEENT: Sclerae nonicteric. NECK: Supple. LUNGS: Clear. CARDIOVASCULAR: Regular. ABDOMEN: Soft, nontender. EXTREMITIES: With no pitting edema. LABORATORY DATA: Reviewed. Influenza screen is negative. Her BUN is 37 and creatinine of ____. INR 1.2. D-dimer is 7.7. WBC 8.2, hemoglobin 16.1 and platelets are 164. IMPRESSION: 1. Acute pulmonary embolism in a patient who is somewhat sedentary but reasonable active, in view of her age. She does have a history of multiple cancers including melanoma in 12/2015, history of breast cancer status post lumpectomy on the left and axillary lymph node dissection in 1992 and history of renal cancer treated with left nephrectomy in 2009. At this point, I would like to do a CT chest, abdomen and pelvis without contrast to rule out any recurrent malignancy, which could be a potential risk factor in her case. 2. No significant history of tobacco use. 3. History of multiple cancers including breast cancer, renal cancer and melanoma, all reportedly in remission per history. RECOMMENDATIONS: 1. Discussed with the patient and the daughter in detail. We will obtain noncontrast CT chest, abdomen and pelvis to rule out any recurrent malignancies as discussed above. 2. Discontinue Lovenox due to renal insufficiency, placed her on heparin protocol. 3. She could go home on Eliquis or Xarelto. I did discuss with her regarding the long-term risk of being on anticoagulation and benefits and she agrees to pursue with it for now. 4. The duration of treatment will depend on any recurrent malignancy and if that is the case, then she would need lifelong anticoagulation. 5. Obtain tumor marker for breast cancer. 6. Obtain venous Dopplers of the lower extremities. AGGIE LYNN MD DR: MANUELITO/alisa JOB#: [id number] / [id number] NAYELI
[2016-06-03 14:50] VITALS: BP 160/72
--- NOTE | 2016-06-03 15:49 | RAD ---
CT of the chest, abdomen and pelvis without contrast, 06/03/2016: History: Multiple cancers, possible recurrence No IV contrast was administered for this study as requested. There is mild calcific plaquing of the thoracic aorta without evidence of aneurysm. The heart is of normal size. There appears to be a small hiatal hernia. Small mediastinal lymph nodes are present without evidence of pathologic enlargement. There is a calcified granuloma in the right lower lobe. There are a few scattered linear parenchymal opacities in both lungs compatible with scars. Minimal apical pleural-parenchymal opacities are also probably due to scarring. No pulmonary mass or significant consolidation is seen. There is no evidence of pleural fluid. Moderate hypertrophic spurring is present in the spine. No fracture or destructive bony lesion is seen. The gallbladder is surgically absent. The unopacified liver shows no abnormality. No pancreatic abnormality is seen. The spleen is of normal size. The left kidney is surgically absent. The unopacified right kidney shows no abnormality. Aortoiliac calcific plaquing is present. No abdominal or pelvic adenopathy is seen. The uterus is surgically absent. Colonic diverticula are present, most numerous in the sigmoid region. No paracolonic inflammatory process is seen. No free fluid is evident in the abdomen or pelvis. IMPRESSION: 1. Surgical absence of the left kidney. 2. Sigmoid diverticulosis. 3. No evidence of metastatic disease in the chest, abdomen or pelvis. PQRS Compliance Statement: One or more of the following individualized dose reduction techniques were utilized for this examination: 1. Automated exposure control 2. Adjustment of the mA and/or kV according to patient size 3. Use of iterative reconstruction technique
[2016-06-03] MEDS: ANTI-COAG MONITOR BY PHARMACY. MC PRN (16:16)
--- NOTE | 2016-06-03 16:47 | RAD ---
Exam performed: Bilateral lower extremity venous Doppler. Clinical Indication: Pulmonary embolism Date of Service:06/03/16 Comparison : None available Discussion: Multiple longitudinal and transverse high resolution real-time images of the venous system of bilateral lower extremity were obtained with color and Doppler sampling and spectral analysis. There is a partially occlusive clot in the left mid to distal superficial femoral vein and peroneal vein. The right common femoral, superficial femoral, popliteal and proximal calf veins are all patent and demonstrate normal flow and compressibility. Normal respiratory phasicity and augmentation is present. There is a 2.1 x 0.6 x 1.4 cm right groin lymph node Impression: 1. Partially occlusive clot in the left mid to distal superficial femoral vein and the peroneal vein. 2. No convincing evidence of DVT seen in the right lower extremity.
[2016-06-03 19:00] VITALS: BP 129/65
[2016-06-03] MEDS: ZOLPIDEM 5 MG TABLET. PO SCH (20:46)
[2016-06-03] MEDS: SIMVASTATIN 20 MG TABLET PO SCH (20:46)
[2016-06-03 23:10] VITALS: BP 146/74
[2016-06-04 03:00] VITALS: BP 135/62
[2016-06-04 07:04] VITALS: BP 156/65
[2016-06-04] MEDS: HEPARIN 25,000UTS/500ML PREMIX 500 ML IV PRN (09:34)
[2016-06-04] MEDS: HYDROCHLOROTHIAZIDE 25 MG TABLET PO SCH (09:37)
[2016-06-04] MEDS: LOSARTAN POTASSIUM 50 MG TABLET. PO SCH (09:38)
[2016-06-04] MEDS: METOPROLOL TART IMMED RELEASE 50 MG TABLET PO SCH (09:38)
[2016-06-04] MEDS: GLIMEPIRIDE 2 MG TABLET PO SCH (09:39)
--- NOTE | 2016-06-04 09:57 | PDOC ---
PULMONARY PROGRESS NOTES Subjective pat feels better Vitals Vital Signs Date Time Temp Pulse Resp B/P Pulse Ox O2 Delivery O2 Flow Rate FiO2 06/04/16 09:38 73 156/65 06/04/16 07:04 98.2 17 96 Room Air 98.2 ROS: No Nausea, No Chest Pain, No Abdominal Pain, No Increase Cough Lungs: Clear Cardiovascular: S1 Abdomen: Soft Neuro Exam: Alert Extremities: No Edema Labs Laboratory Tests Test 06/02/16 10:36 06/02/16 15:58 06/02/16 20:59 06/03/16 07:05 Glucose (Fingerstick) 245mg/dL (70-99) 99mg/dL (70-99) 243mg/dL (70-99) 117mg/dL (70-99) Test 06/03/16 11:02 06/03/16 16:38 06/03/16 18:20 06/03/16 20:48 Glucose (Fingerstick) 183mg/dL (70-99) 117mg/dL (70-99) 190mg/dL (70-99) Heparin Anti-Xa Act, Unfractionated > 1.10IU/mL (0.30-0.70) Test 06/04/16 00:28 06/04/16 07:03 06/04/16 07:20 Heparin Anti-Xa Act, Unfractionated 1.03IU/mL (0.30-0.70) 0.76IU/mL (0.30-0.70) Glucose (Fingerstick) 133mg/dL (70-99) Laboratory Tests Test 06/03/16 11:02 06/03/16 16:38 06/03/16 18:20 06/03/16 20:48 Glucose (Fingerstick) 183mg/dL (70-99) 117mg/dL (70-99) 190mg/dL (70-99) Heparin Anti-Xa Act, Unfractionated > 1.10IU/mL (0.30-0.70) Test 06/04/16 00:28 06/04/16 07:03 06/04/16 07:20 Heparin Anti-Xa Act, Unfractionated 1.03IU/mL (0.30-0.70) 0.76IU/mL (0.30-0.70) Glucose (Fingerstick) 133mg/dL (70-99) Medications Active Scripts Medications Dose Route/Sig Days Date Category Pradaxa (Dabigatran Etexilate Mesylate) 150 Mg Capsule 0.5 Cap PO BID 06/01/16 Rx Tylenol (Acetaminophen) 325 Mg Tablet 1-2 Tab PO PRN QHS PRN 05/31/16 Reported [place] 5-325 Tablet (Acetaminophen/Hydrocodone Bitart) 1 Each Tablet 1 Tab PO TID 02/21/16 Reported Losartan Potassium 100 Mg Tablet 100 Mg PO DAILY 02/19/16 Reported Glimepiride 1 Mg Tablet 1 Mg PO DAILY 02/19/16 Reported Simvastatin 20 Mg Tablet 20 Mg PO HS 02/19/16 Reported Metoprolol Tartrate 50 Mg Tablet 50 Mg PO DAILY07 02/19/16 Reported Hydrochlorothiazide Tablet (Hydrochlorothiazide) 25 Mg Tablet 25 Mg PO DAILY 02/19/16 Reported Impression . 1. Acute pulmonary embolism 2. No significant history of tobacco use. 3. History of multiple cancers including breast cancer, renal cancer and melanoma, all reportedly in remission per history. no sigh of new disease on current CT 4. Left DVT Plan . RECOMMENDATIONS: continue heparin home in am on TREVOR Orr MD Jun 04, 2016 09:57
[2016-06-04 10:57] VITALS: BP 143/58
--- NOTE | 2016-06-04 12:22 | PDOC ---
PROGRESS NOTES Chief Complaint Chief Complaint Unprovoked, first episode pE Hypoxic respi failure SOLITaRY kidney, hx RCC NOn occlussive Superficial femoral and peroneal clot History of Present Illness History of Present Illness PAssed the 6MW Pt ambulating US shows non occlusive clot superficial peroneal and femoral vein She claims she is active at home HEparin gtt running Discussion about DVt, PE, course etc dw pt Signif time in room - she understands Copies of all her images provided PLan: Cont heparin gtt Ambulate as tolerated No O2 needs Shift to PO AC soon Vitals Vitals Vital Signs Date Time Temp Pulse Resp B/P Pulse Ox O2 Delivery O2 Flow Rate FiO2 06/04/16 10:57 97.5 74 17 143/58 93 Room Air 97.5 Physical Exam General: Alert, Oriented X3, Cooperative, No acute distress Heart: Regular rate Lungs: Clear Abdomen: Normal bowel sounds, Other Extremities: No clubbing, No edema Skin: No rashes, No significant lesion Labs LABS Laboratory Tests Test 06/03/16 16:38 06/03/16 18:20 06/03/16 20:48 06/04/16 00:28 Glucose (Fingerstick) 117mg/dL (70-99) 190mg/dL (70-99) Heparin Anti-Xa Act, Unfractionated > 1.10IU/mL (0.30-0.70) 1.03IU/mL (0.30-0.70) Test 06/04/16 07:03 06/04/16 07:20 06/04/16 11:13 Glucose (Fingerstick) 133mg/dL (70-99) 179mg/dL (70-99) Heparin Anti-Xa Act, Unfractionated 0.76IU/mL (0.30-0.70) Review of Systems Review of Systems no inc soa, chronic swelling knees, no cp Assessment and Plan Assessmemt and Plan Problems Medical Problems: (1) LOE (dyspnea on exertion) Status: Acute (2) History of breast cancer Status: Acute (3) Pulmonary embolism Status: Acute (4) Pulmonary embolus Status: Acute Problems: Comment Review of Relevant I have reviewed the following items harrison (where applicable) has been applied. Labs Laboratory Tests Test 06/02/16 15:58 06/02/16 20:59 06/03/16 07:05 06/03/16 11:02 Glucose (Fingerstick) 99mg/dL (70-99) 243mg/dL (70-99) 117mg/dL (70-99) 183mg/dL (70-99) Test 06/03/16 16:38 06/03/16 18:20 06/03/16 20:48 06/04/16 00:28 Glucose (Fingerstick) 117mg/dL (70-99) 190mg/dL (70-99) Heparin Anti-Xa Act, Unfractionated > 1.10IU/mL (0.30-0.70) 1.03IU/mL (0.30-0.70) Test 06/04/16 07:03 06/04/16 07:20 06/04/16 11:13 Glucose (Fingerstick) 133mg/dL (70-99) 179mg/dL (70-99) Heparin Anti-Xa Act, Unfractionated 0.76IU/mL (0.30-0.70) Laboratory Tests Test 06/03/16 16:38 06/03/16 18:20 06/03/16 20:48 06/04/16 00:28 Glucose (Fingerstick) 117mg/dL (70-99) 190mg/dL (70-99) Heparin Anti-Xa Act, Unfractionated > 1.10IU/mL (0.30-0.70) 1.03IU/mL (0.30-0.70) Test 06/04/16 07:03 06/04/16 07:20 06/04/16 11:13 Glucose (Fingerstick) 133mg/dL (70-99) 179mg/dL (70-99) Heparin Anti-Xa Act, Unfractionated 0.76IU/mL (0.30-0.70) Medications Current Medications Sodium Chloride (Iv Sodium Chloride 0.9% 1000ml Bag) 1,000 ml @ 75 mls/hr 1X ONCE IV Last administered on 05/31/16t 21:02; Start 05/31/16 at 20:45; Stop at 10:04; Status DC Heparin Sodium (Porcine) 8800 unit 8,800 unit 1X ONCE IV ; Start 05/31/16 at 22 :30; Stop 05/31/16 at 22:45; Status DC Heparin Sodium/ Dextrose 500 ml @ 0 mls/hr CONT PRN IV SEE I/O RECORD; Start at 22:30; Status Cancel Heparin Sodium (Porcine) 3,300 unit PRN Q6HRS PRN IV FOR UFH LEVEL LESS THAN 0.2; Start 05/31/16 at 22:30; Status Cancel Heparin Sodium (Porcine) 1,650 unit PRN Q6HRS PRN IV FOR UFH LEVEL 0.2 - 0.29; Start 05/31/16 at 22:30; Status Cancel Warfarin Sodium (Coumadin Per Pharmacy) 1 each PRN DAILY PRN MC PER PROTOCOL; Start 05/31/16 at 22:15; Status UNV Acetaminophen (Tylenol) 650 mg PRN QHS PRN PO INSOM; Start 05/31/16 at 22:45 Hydrochlorothiazide (Hydrodiuril) 25 mg DAILY PO Last administered on 09:37; Start 06/01/16 at 09:00 Acetaminophen/ Hydrocodone Bitart (Lortab 5/325) 1 tab TID PO ; Start 06/01/16 at 09:00; Stop 06/02/16 at 15:54; Status DC Metoprolol Tartrate (Lopressor) 50 mg DAILY07 PO ; Start 06/01/16 at 07:00; Stop 06/01/16 at 07:00; Status DC Simvastatin (Zocor) 20 mg HS PO Last administered on 06/03/16 20:46; Start at 23:00 Glimepiride (Amaryl) 1 mg DAILY PO Last administered on 06/04/16 09:39; Start 06/01/16 at 09:00 Losartan Potassium (Cozaar) 100 mg DAILY PO Last administered on 06/04/16 09: 38; Start 06/01/16 at 09:00 Enoxaparin Sodium (Lovenox 120mg Syringe) 120 mg Q12HR SQ ; Start 05/31/16 at 23 :00; Stop 05/31/16 at 23:00; Status DC Enoxaparin Sodium (Lovenox 120mg Syringe) 110 mg ONCE ONCE SQ Last administered on 05/31/16 23:09; Start 05/31/16 at 23:00; Stop 05/31/16 at 23:01 ; Status DC Metoprolol Tartrate (Lopressor) 50 mg DAILY PO Last administered on 06/04/16 09:38; Start 06/01/16 at 09:00 Enoxaparin Sodium (Lovenox 60mg Syringe) 60 mg Q12HR SQ Last administered on 09:21; Start 06/01/16 at 21:15; Stop 06/03/16 at 11:11; Status DC Zolpidem Tartrate 5 mg 5 mg QHS PO Last administered on 06/03/16 20:46; Start 06/01/16 at 21:15 Heparin Sodium/ Dextrose 500 ml @ 0 mls/hr CONT PRN IV SEE I/O RECORD Last administered on 06/04/16 09:34; Start 06/03/16 at 11:15 Heparin Sodium (Porcine) 3,350 unit PRN Q6HRS PRN IV FOR UFH LEVEL LESS THAN 0.2; Start 06/03/16 at 11:15 Heparin Sodium (Porcine) 1,700 unit PRN Q6HRS PRN IV FOR UFH LEVEL 0.2 - 0.29; Start 06/03/16 at 11:15 Info (Anti-Coagulation Monitoring By Pharmacy) 1 each PRN DAILY PRN MC SEE COMMENTS Last administered on 06/03/16 16:16; Start 06/03/16 at 14:45 Active Scripts Active Pradaxa (Dabigatran Etexilate Mesylate) 150 Mg Capsule 0.5 Cap PO BID Reported Tylenol (Acetaminophen) 325 Mg Tablet 1-2 Tab PO PRN QHS PRN [place] 5-325 Tablet (Acetaminophen/Hydrocodone Bitart) 1 Each Tablet 1 Tab PO TID Losartan Potassium 100 Mg Tablet 100 Mg PO DAILY Glimepiride 1 Mg Tablet 1 Mg PO DAILY Simvastatin 20 Mg Tablet 20 Mg PO HS Metoprolol Tartrate 50 Mg Tablet 50 Mg PO DAILY07 Hydrochlorothiazide Tablet (Hydrochlorothiazide) 25 Mg Tablet 25 Mg PO DAILY Vitals/I & O Vital Sign - Last 24 Hours 06/03/16 06/03/16 06/03/16 06/03/16 14:50 19:00 19:47 23:10 Temp 97.5 97.9 98.1 97.5 97.9 98.1 Pulse 70 72 76 Resp 17 20 20 B/P 160/72 129/65 146/74 Pulse Ox 94 95 94 O2 Delivery Room Air Room Air Room Air Room Air 06/04/16 06/04/16 06/04/16 06/04/16 03:00 07:04 08:05 08:17 Temp 97.9 98.2 97.9 98.2 Pulse 73 73 Resp 20 17 B/P 135/62 156/65 Pulse Ox 94 96 O2 Delivery Room Air Room Air Room Air Room Air 06/04/16 06/04/16 06/04/16 09:38 09:38 10:57 Temp 97.5 97.5 Pulse 73 73 74 Resp 17 B/P 156/65 156/65 143/58 Pulse Ox 93 O2 Delivery Room Air Intake and Output 06/03/16 06/03/16 06/04/16 15:00 23:00 07:00 Intake Total 480 ml 200 ml Output Total 300 ml 400 ml 300 ml Balance -300 ml 80 ml -100 ml KADIE NGUYEN MD Jun 04, 2016 12:22
[2016-06-04 14:46] VITALS: BP 136/66
[2016-06-04 19:00] VITALS: BP 144/66
[2016-06-04] MEDS: ZOLPIDEM 5 MG TABLET. PO SCH (20:12)
[2016-06-04] MEDS: SIMVASTATIN 20 MG TABLET PO SCH (20:12)
[2016-06-04 23:00] VITALS: BP 137/75
[2016-06-05 03:00] VITALS: BP 125/64
[2016-06-05 07:00] VITALS: BP 152/79
[2016-06-05] MEDS: GLIMEPIRIDE 2 MG TABLET PO SCH (08:46)
[2016-06-05] MEDS: HYDROCHLOROTHIAZIDE 25 MG TABLET PO SCH (08:47)
[2016-06-05] MEDS: METOPROLOL TART IMMED RELEASE 50 MG TABLET PO SCH (08:47)
[2016-06-05] MEDS: LOSARTAN POTASSIUM 50 MG TABLET. PO SCH (08:48)
[2016-06-05 08:59] LABS: HEMATOCRIT 45.4 % (36.0-47.0); HEMOGLOBIN 14.9 g/dL (12.0-15.5); RED BLOOD COUNT 5.01 x10^6/uL (3.50-5.40); RED CELL DISTRIBUTION WIDTH 13.5 % (11.5-14.5); WHITE BLOOD COUNT 6.9 x10^3/uL (4.0-11.0)
[2016-06-05] MEDS: HEPARIN 25,000UTS/500ML PREMIX 500 ML IV PRN (10:26)
[2016-06-05 11:00] VITALS: BP 138/58
[2016-06-05 15:00] VITALS: BP 105/70
--- NOTE | 2016-06-05 15:13 | PDOC ---
PROGRESS NOTES Chief Complaint Chief Complaint Unprovoked, first episode PE Hypoxic respiratory failure Solitary kidney, hx RCC Occlusive Superficial femoral and peroneal clot Plan Continue Heparin gtt, Pharmacy to dose heparin supplemental oxygen as needed Check renal functions before starting Eliquis BMP History of Present Illness History of Present Illness no sob no chest pain no fever no chills. Vitals Vitals Vital Signs Date Time Temp Pulse Resp B/P Pulse Ox O2 Delivery O2 Flow Rate FiO2 06/05/16 11:00 98.2 57 22 138/58 97 Room Air 98.2 Physical Exam General: Alert, Oriented X3, Cooperative, No acute distress Heart: Regular rate Lungs: Clear Abdomen: Normal bowel sounds, Other Extremities: No clubbing, No edema Skin: No rashes, No significant lesion Labs LABS Laboratory Tests Test 06/04/16 16:18 06/04/16 19:30 06/04/16 20:39 06/05/16 07:30 Glucose (Fingerstick) 107mg/dL (70-99) 196mg/dL (70-99) 127mg/dL (70-99) Heparin Anti-Xa Act, Unfractionated 0.43IU/mL (0.30-0.70) Test 06/05/16 08:17 06/05/16 11:00 White Blood Count 6.9x10^3/uL (4.0-11.0) Red Blood Count 5.01x10^6/uL (3.50-5.40) Hemoglobin 14.9g/dL (12.0-15.5) Hematocrit 45.4% (36.0-47.0) Mean Corpuscular Volume 91fL (79-100) Mean Corpuscular Hemoglobin 30pg (25-35) Mean Corpuscular Hemoglobin Concent 33g/dL (31-37) Red Cell Distribution Width 13.5% (11.5-14.5) Platelet Count 177x10^3/uL (140-400) Heparin Anti-Xa Act, Unfractionated 0.38IU/mL (0.30-0.70) Glucose (Fingerstick) 192mg/dL (70-99) Assessment and Plan Assessmemt and Plan Problems Medical Problems: (1) LEO (dyspnea on exertion) Status: Acute (2) History of breast cancer Status: Acute (3) Pulmonary embolism Status: Acute (4) Pulmonary embolus Status: Acute Problems: Comment Review of Relevant I have reviewed the following items harrison (where applicable) has been applied. Labs Laboratory Tests Test 06/03/16 16:38 06/03/16 18:20 06/03/16 20:48 06/04/16 00:28 Glucose (Fingerstick) 117mg/dL (70-99) 190mg/dL (70-99) Heparin Anti-Xa Act, Unfractionated > 1.10IU/mL (0.30-0.70) 1.03IU/mL (0.30-0.70) CA 27.29 19.1U/mL (0.0-38.6) Test 06/04/16 07:03 06/04/16 07:20 06/04/16 11:13 06/04/16 13:20 Glucose (Fingerstick) 133mg/dL (70-99) 179mg/dL (70-99) Heparin Anti-Xa Act, Unfractionated 0.76IU/mL (0.30-0.70) 0.50IU/mL (0.30-0.70) Test 06/04/16 16:18 06/04/16 19:30 06/04/16 20:39 06/05/16 07:30 Glucose (Fingerstick) 107mg/dL (70-99) 196mg/dL (70-99) 127mg/dL (70-99) Heparin Anti-Xa Act, Unfractionated 0.43IU/mL (0.30-0.70) Test 06/05/16 08:17 06/05/16 11:00 White Blood Count 6.9x10^3/uL (4.0-11.0) Red Blood Count 5.01x10^6/uL (3.50-5.40) Hemoglobin 14.9g/dL (12.0-15.5) Hematocrit 45.4% (36.0-47.0) Mean Corpuscular Volume 91fL (79-100) Mean Corpuscular Hemoglobin 30pg (25-35) Mean Corpuscular Hemoglobin Concent 33g/dL (31-37) Red Cell Distribution Width 13.5% (11.5-14.5) Platelet Count 177x10^3/uL (140-400) Heparin Anti-Xa Act, Unfractionated 0.38IU/mL (0.30-0.70) Glucose (Fingerstick) 192mg/dL (70-99) Laboratory Tests Test 06/04/16 16:18 06/04/16 19:30 06/04/16 20:39 06/05/16 07:30 Glucose (Fingerstick) 107mg/dL (70-99) 196mg/dL (70-99) 127mg/dL (70-99) Heparin Anti-Xa Act, Unfractionated 0.43IU/mL (0.30-0.70) Test 06/05/16 08:17 06/05/16 11:00 White Blood Count 6.9x10^3/uL (4.0-11.0) Red Blood Count 5.01x10^6/uL (3.50-5.40) Hemoglobin 14.9g/dL (12.0-15.5) Hematocrit 45.4% (36.0-47.0) Mean Corpuscular Volume 91fL (79-100) Mean Corpuscular Hemoglobin 30pg (25-35) Mean Corpuscular Hemoglobin Concent 33g/dL (31-37) Red Cell Distribution Width 13.5% (11.5-14.5) Platelet Count 177x10^3/uL (140-400) Heparin Anti-Xa Act, Unfractionated 0.38IU/mL (0.30-0.70) Glucose (Fingerstick) 192mg/dL (70-99) Medications Current Medications Sodium Chloride (Iv Sodium Chloride 0.9% 1000ml Bag) 1,000 ml @ 75 mls/hr 1X ONCE IV Last administered on 05/31/16t 21:02; Start 05/31/16 at 20:45; Stop at 10:04; Status DC Heparin Sodium (Porcine) 8800 unit 8,800 unit 1X ONCE IV ; Start 05/31/16 at 22 :30; Stop 05/31/16 at 22:45; Status DC Heparin Sodium/ Dextrose 500 ml @ 0 mls/hr CONT PRN IV SEE I/O RECORD; Start at 22:30; Status Cancel Heparin Sodium (Porcine) 3,300 unit PRN Q6HRS PRN IV FOR UFH LEVEL LESS THAN 0.2; Start 05/31/16 at 22:30; Status Cancel Heparin Sodium (Porcine) 1,650 unit PRN Q6HRS PRN IV FOR UFH LEVEL 0.2 - 0.29; Start 05/31/16 at 22:30; Status Cancel Warfarin Sodium (Coumadin Per Pharmacy) 1 each PRN DAILY PRN MC PER PROTOCOL; Start 05/31/16 at 22:15; Status UNV Acetaminophen (Tylenol) 650 mg PRN QHS PRN PO INSOM; Start 05/31/16 at 22:45 Hydrochlorothiazide (Hydrodiuril) 25 mg DAILY PO Last administered on 06/05/16 08:47; Start 06/01/16 at 09:00 Acetaminophen/ Hydrocodone Bitart (Lortab 5/325) 1 tab TID PO ; Start 06/01/16 at 09:00; Stop 06/02/16 at 15:54; Status DC Metoprolol Tartrate (Lopressor) 50 mg DAILY07 PO ; Start 06/01/16 at 07:00; Stop 06/01/16 at 07:00; Status DC Simvastatin (Zocor) 20 mg HS PO Last administered on 06/04/16 20:12; Start at 23:00 Glimepiride (Amaryl) 1 mg DAILY PO Last administered on 06/05/16 08:46; Start 06/01/16 at 09:00 Losartan Potassium (Cozaar) 100 mg DAILY PO Last administered on 06/05/16 08:48 ; Start 06/01/16 at 09:00 Enoxaparin Sodium (Lovenox 120mg Syringe) 120 mg Q12HR SQ ; Start 05/31/16 at 23 :00; Stop 05/31/16 at 23:00; Status DC Enoxaparin Sodium (Lovenox 120mg Syringe) 110 mg ONCE ONCE SQ Last administered on 05/31/16 23:09; Start 05/31/16 at 23:00; Stop 05/31/16 at 23:01 ; Status DC Metoprolol Tartrate (Lopressor) 50 mg DAILY PO Last administered on 06/05/16 08 :47; Start 06/01/16 at 09:00 Enoxaparin Sodium (Lovenox 60mg Syringe) 60 mg Q12HR SQ Last administered on 09:21; Start 06/01/16 at 21:15; Stop 06/03/16 at 11:11; Status DC Zolpidem Tartrate 5 mg 5 mg QHS PO Last administered on 06/04/16 20:12; Start 06/01/16 at 21:15 Heparin Sodium/ Dextrose 500 ml @ 0 mls/hr CONT PRN IV SEE I/O RECORD Last administered on 06/05/16 10:26; Start 06/03/16 at 11:15 Heparin Sodium (Porcine) 3,350 unit PRN Q6HRS PRN IV FOR UFH LEVEL LESS THAN 0.2; Start 06/03/16 at 11:15 Heparin Sodium (Porcine) 1,700 unit PRN Q6HRS PRN IV FOR UFH LEVEL 0.2 - 0.29; Start 06/03/16 at 11:15 Info (Anti-Coagulation Monitoring By Pharmacy) 1 each PRN DAILY PRN MC SEE COMMENTS Last administered on 06/03/16 16:16; Start 06/03/16 at 14:45 Active Scripts Active Pradaxa (Dabigatran Etexilate Mesylate) 150 Mg Capsule 0.5 Cap PO BID Reported Tylenol (Acetaminophen) 325 Mg Tablet 1-2 Tab PO PRN QHS PRN [place] 5-325 Tablet (Acetaminophen/Hydrocodone Bitart) 1 Each Tablet 1 Tab PO TID Losartan Potassium 100 Mg Tablet 100 Mg PO DAILY Glimepiride 1 Mg Tablet 1 Mg PO DAILY Simvastatin 20 Mg Tablet 20 Mg PO HS Metoprolol Tartrate 50 Mg Tablet 50 Mg PO DAILY07 Hydrochlorothiazide Tablet (Hydrochlorothiazide) 25 Mg Tablet 25 Mg PO DAILY Vitals/I & O Vital Sign - Last 24 Hours 06/04/16 06/04/16 06/04/16 06/05/16 19:00 20:00 23:00 03:00 Temp 97.9 97.9 97.8 97.9 97.9 97.8 Pulse 69 68 68 Resp 18 18 16 B/P 144/66 137/75 125/64 Pulse Ox 94 94 94 O2 Delivery Room Air 06/05/16 06/05/16 06/05/16 06/05/16 07:00 08:15 08:47 08:48 Temp 97.0 97.0 Pulse 65 65 65 Resp 20 B/P 152/79 152/79 152/79 Pulse Ox 98 O2 Delivery Room Air Room Air 06/05/16 11:00 Temp 98.2 98.2 Pulse 57 Resp 22 B/P 138/58 Pulse Ox 97 O2 Delivery Room Air Intake and Output 06/04/16 06/04/16 06/05/16 15:00 23:00 07:00 Intake Total 360 ml 770 ml Output Total 400 ml Balance -40 ml 770 ml LOIDA PENNINGTON MD Jun 05, 2016 15:13
[2016-06-05 15:25] LABS: CALCIUM 9.6 mg/dL (8.5-10.1); CREATININE 1.4 mg/dL (0.6-1.0); GFR 35.5; POTASSIUM 3.8 mmol/L (3.5-5.1)
--- NOTE | 2016-06-05 17:27 | PDOC ---
PULMONARY PROGRESS NOTES Subjective pat feels better Vitals Vital Signs Date Time Temp Pulse Resp B/P Pulse Ox O2 Delivery O2 Flow Rate FiO2 06/05/16 15:00 97.5 63 22 105/70 96 Room Air 97.5 ROS: No Nausea, No Chest Pain, No Abdominal Pain, No Increase Cough Lungs: Clear Cardiovascular: S1 Abdomen: Soft Neuro Exam: Alert Extremities: No Edema Labs Laboratory Tests Test 06/03/16 18:20 06/03/16 20:48 06/04/16 00:28 06/04/16 07:03 Heparin Anti-Xa Act, Unfractionated > 1.10IU/mL (0.30-0.70) 1.03IU/mL (0.30-0.70) CA 27.29 19.1U/mL (0.0-38.6) Glucose (Fingerstick) 190mg/dL (70-99) 133mg/dL (70-99) Test 06/04/16 07:20 06/04/16 11:13 06/04/16 13:20 06/04/16 16:18 Heparin Anti-Xa Act, Unfractionated 0.76IU/mL (0.30-0.70) 0.50IU/mL (0.30-0.70) Glucose (Fingerstick) 179mg/dL (70-99) 107mg/dL (70-99) Test 06/04/16 19:30 06/04/16 20:39 06/05/16 07:30 06/05/16 08:17 Heparin Anti-Xa Act, Unfractionated 0.43IU/mL (0.30-0.70) 0.38IU/mL (0.30-0.70) Glucose (Fingerstick) 196mg/dL (70-99) 127mg/dL (70-99) White Blood Count 6.9x10^3/uL (4.0-11.0) Red Blood Count 5.01x10^6/uL (3.50-5.40) Hemoglobin 14.9g/dL (12.0-15.5) Hematocrit 45.4% (36.0-47.0) Mean Corpuscular Volume 91fL (79-100) Mean Corpuscular Hemoglobin 30pg (25-35) Mean Corpuscular Hemoglobin Concent 33g/dL (31-37) Red Cell Distribution Width 13.5% (11.5-14.5) Platelet Count 177x10^3/uL (140-400) Sodium Level 142mmol/L (136-145) Potassium Level 3.8mmol/L (3.5-5.1) Chloride Level 105mmol/L (98-107) Carbon Dioxide Level 27mmol/L (21-32) Anion Gap 10 (6-14) Blood Urea Nitrogen 32mg/dL (7-20) Creatinine 1.4mg/dL (0.6-1.0) Estimated GFR (Cockcroft-Gault) 35.5 Glucose Level 158mg/dL (70-99) Calcium Level 9.6mg/dL (8.5-10.1) Test 06/05/16 11:00 06/05/16 16:12 Glucose (Fingerstick) 192mg/dL (70-99) 119mg/dL (70-99) Laboratory Tests Test 06/04/16 19:30 06/04/16 20:39 06/05/16 07:30 06/05/16 08:17 Heparin Anti-Xa Act, Unfractionated 0.43IU/mL (0.30-0.70) 0.38IU/mL (0.30-0.70) Glucose (Fingerstick) 196mg/dL (70-99) 127mg/dL (70-99) White Blood Count 6.9x10^3/uL (4.0-11.0) Red Blood Count 5.01x10^6/uL (3.50-5.40) Hemoglobin 14.9g/dL (12.0-15.5) Hematocrit 45.4% (36.0-47.0) Mean Corpuscular Volume 91fL (79-100) Mean Corpuscular Hemoglobin 30pg (25-35) Mean Corpuscular Hemoglobin Concent 33g/dL (31-37) Red Cell Distribution Width 13.5% (11.5-14.5) Platelet Count 177x10^3/uL (140-400) Sodium Level 142mmol/L (136-145) Potassium Level 3.8mmol/L (3.5-5.1) Chloride Level 105mmol/L (98-107) Carbon Dioxide Level 27mmol/L (21-32) Anion Gap 10 (6-14) Blood Urea Nitrogen 32mg/dL (7-20) Creatinine 1.4mg/dL (0.6-1.0) Estimated GFR (Cockcroft-Gault) 35.5 Glucose Level 158mg/dL (70-99) Calcium Level 9.6mg/dL (8.5-10.1) Test 06/05/16 11:00 06/05/16 16:12 Glucose (Fingerstick) 192mg/dL (70-99) 119mg/dL (70-99) Medications Active Scripts Medications Dose Route/Sig Days Date Category Pradaxa (Dabigatran Etexilate Mesylate) 150 Mg Capsule 0.5 Cap PO BID 06/01/16 Rx Tylenol (Acetaminophen) 325 Mg Tablet 1-2 Tab PO PRN QHS PRN 05/31/16 Reported [place] 5-325 Tablet (Acetaminophen/Hydrocodone Bitart) 1 Each Tablet 1 Tab PO TID 02/21/16 Reported Losartan Potassium 100 Mg Tablet 100 Mg PO DAILY 02/19/16 Reported Glimepiride 1 Mg Tablet 1 Mg PO DAILY 02/19/16 Reported Simvastatin 20 Mg Tablet 20 Mg PO HS 02/19/16 Reported Metoprolol Tartrate 50 Mg Tablet 50 Mg PO DAILY07 02/19/16 Reported Hydrochlorothiazide Tablet (Hydrochlorothiazide) 25 Mg Tablet 25 Mg PO DAILY 02/19/16 Reported Impression . 1. Acute pulmonary embolism 2. No significant history of tobacco use. 3. History of multiple cancers including breast cancer, renal cancer and melanoma, all reportedly in remission per history. no sigh of new disease on current CT 4. Left DVT Plan . continue heparin agree monitoring renal function now less than 1.5 ? home in [place] Francois MD Jun 05, 2016 17:27
[2016-06-05 19:00] VITALS: BP 148/57
[2016-06-05] MEDS: SIMVASTATIN 20 MG TABLET PO SCH (20:06)
[2016-06-05] MEDS: ZOLPIDEM 5 MG TABLET. PO SCH (21:32)
[2016-06-05 23:00] VITALS: BP 131/81
[2016-06-06 03:00] VITALS: BP 106/63
[2016-06-06 07:33] VITALS: BP 140/67
[2016-06-06] MEDS: LOSARTAN POTASSIUM 50 MG TABLET. PO SCH (08:53)
[2016-06-06] MEDS: GLIMEPIRIDE 2 MG TABLET PO SCH (08:53)
[2016-06-06] MEDS: HYDROCHLOROTHIAZIDE 25 MG TABLET PO SCH (08:55)
[2016-06-06] MEDS: METOPROLOL TART IMMED RELEASE 50 MG TABLET PO SCH (08:57)
[2016-06-06 10:11] VITALS: BP 133/64
[2016-06-06] MEDS: APIXABAN 5 MG TABLET. PO SCH ×2 (11:05→20:36)
--- NOTE | 2016-06-06 11:59 | PDOC ---
PROGRESS NOTES Chief Complaint Chief Complaint Unprovoked, first episode PE Hypoxic respiratory failure Resolved. Solitary kidney, hx RCC Occlusive Superficial femoral and peroneal clot Plan DC heparin gtt. Started on Eliquis Cr 1.4, d/w Pharmacy appreciate pulmonolgy recommendatons Clinically improving. History of Present Illness History of Present Illness no sob no chest pain no fever no chills. Vitals Vitals Vital Signs Date Time Temp Pulse Resp B/P Pulse Ox O2 Delivery O2 Flow Rate FiO2 06/06/16 10:11 97.7 59 20 133/64 96 Room Air 97.7 Physical Exam General: Alert, Oriented X3, Cooperative, No acute distress Heart: Regular rate Lungs: Clear Abdomen: Normal bowel sounds, Other Extremities: No clubbing, No edema Skin: No rashes, No significant lesion Labs LABS Laboratory Tests Test 06/05/16 16:12 06/05/16 20:58 06/06/16 05:20 06/06/16 07:57 Glucose (Fingerstick) 119mg/dL (70-99) 196mg/dL (70-99) 143mg/dL (70-99) Heparin Anti-Xa Act, Unfractionated 0.32IU/mL (0.30-0.70) Assessment and Plan Assessmemt and Plan Problems Medical Problems: (1) LEO (dyspnea on exertion) Status: Acute (2) History of breast cancer Status: Acute (3) Pulmonary embolism Status: Acute (4) Pulmonary embolus Status: Acute Problems: Comment Review of Relevant I have reviewed the following items harrison (where applicable) has been applied. Labs Laboratory Tests Test 06/04/16 13:20 06/04/16 16:18 06/04/16 19:30 06/04/16 20:39 Heparin Anti-Xa Act, Unfractionated 0.50IU/mL (0.30-0.70) 0.43IU/mL (0.30-0.70) Glucose (Fingerstick) 107mg/dL (70-99) 196mg/dL (70-99) Test 06/05/16 07:30 06/05/16 08:17 06/05/16 11:00 06/05/16 16:12 Glucose (Fingerstick) 127mg/dL (70-99) 192mg/dL (70-99) 119mg/dL (70-99) White Blood Count 6.9x10^3/uL (4.0-11.0) Red Blood Count 5.01x10^6/uL (3.50-5.40) Hemoglobin 14.9g/dL (12.0-15.5) Hematocrit 45.4% (36.0-47.0) Mean Corpuscular Volume 91fL (79-100) Mean Corpuscular Hemoglobin 30pg (25-35) Mean Corpuscular Hemoglobin Concent 33g/dL (31-37) Red Cell Distribution Width 13.5% (11.5-14.5) Platelet Count 177x10^3/uL (140-400) Heparin Anti-Xa Act, Unfractionated 0.38IU/mL (0.30-0.70) Sodium Level 142mmol/L (136-145) Potassium Level 3.8mmol/L (3.5-5.1) Chloride Level 105mmol/L (98-107) Carbon Dioxide Level 27mmol/L (21-32) Anion Gap 10 (6-14) Blood Urea Nitrogen 32mg/dL (7-20) Creatinine 1.4mg/dL (0.6-1.0) Estimated GFR (Cockcroft-Gault) 35.5 Glucose Level 158mg/dL (70-99) Calcium Level 9.6mg/dL (8.5-10.1) Test 06/05/16 20:58 06/06/16 05:20 06/06/16 07:57 Glucose (Fingerstick) 196mg/dL (70-99) 143mg/dL (70-99) Heparin Anti-Xa Act, Unfractionated 0.32IU/mL (0.30-0.70) Laboratory Tests Test 06/05/16 16:12 06/05/16 20:58 06/06/16 05:20 06/06/16 07:57 Glucose (Fingerstick) 119mg/dL (70-99) 196mg/dL (70-99) 143mg/dL (70-99) Heparin Anti-Xa Act, Unfractionated 0.32IU/mL (0.30-0.70) Medications Current Medications Sodium Chloride (Iv Sodium Chloride 0.9% 1000ml Bag) 1,000 ml @ 75 mls/hr 1X ONCE IV Last administered on 05/31/16 21:02; Start 05/31/16 at 20:45; Stop at 10:04; Status DC Heparin Sodium (Porcine) 8800 unit 8,800 unit 1X ONCE IV ; Start 05/31/16 at 22 :30; Stop 05/31/16 at 22:45; Status DC Heparin Sodium/ Dextrose 500 ml @ 0 mls/hr CONT PRN IV SEE I/O RECORD; Start at 22:30; Status Cancel Heparin Sodium (Porcine) 3,300 unit PRN Q6HRS PRN IV FOR UFH LEVEL LESS THAN 0.2; Start 05/31/16 at 22:30; Status Cancel Heparin Sodium (Porcine) 1,650 unit PRN Q6HRS PRN IV FOR UFH LEVEL 0.2 - 0.29; Start 05/31/16 at 22:30; Status Cancel Warfarin Sodium (Coumadin Per Pharmacy) 1 each PRN DAILY PRN MC PER PROTOCOL; Start 05/31/16 at 22:15; Status UNV Acetaminophen (Tylenol) 650 mg PRN QHS PRN PO INSOM; Start 05/31/16 at 22:45 Hydrochlorothiazide (Hydrodiuril) 25 mg DAILY PO Last administered on 06/06/16 08:55; Start 06/01/16 at 09:00 Acetaminophen/ Hydrocodone Bitart (Lortab 5/325) 1 tab TID PO ; Start 06/01/16 at 09:00; Stop 06/02/16 at 15:54; Status DC Metoprolol Tartrate (Lopressor) 50 mg DAILY07 PO ; Start 06/01/16 at 07:00; Stop 06/01/16 at 07:00; Status DC Simvastatin (Zocor) 20 mg HS PO Last administered on 06/05/16 20:06; Start at 23:00 Glimepiride (Amaryl) 1 mg DAILY PO Last administered on 06/06/16 08:53; Start 06/01/16 at 09:00 Losartan Potassium (Cozaar) 100 mg DAILY PO Last administered on 06/06/16 08:53 ; Start 06/01/16 at 09:00 Enoxaparin Sodium (Lovenox 120mg Syringe) 120 mg Q12HR SQ ; Start 05/31/16 at 23 :00; Stop 05/31/16 at 23:00; Status DC Enoxaparin Sodium (Lovenox 120mg Syringe) 110 mg ONCE ONCE SQ Last administered on 05/31/16 23:09; Start 05/31/16 at 23:00; Stop 05/31/16 at 23:01 ; Status DC Metoprolol Tartrate (Lopressor) 50 mg DAILY PO Last administered on 06/06/16 08 :57; Start 06/01/16 at 09:00 Enoxaparin Sodium (Lovenox 60mg Syringe) 60 mg Q12HR SQ Last administered on 09:21; Start 06/01/16 at 21:15; Stop 06/03/16 at 11:11; Status DC Zolpidem Tartrate 5 mg 5 mg QHS PO Last administered on 06/05/16 21:32; Start 06/01/16 at 21:15 Heparin Sodium/ Dextrose 500 ml @ 0 mls/hr CONT PRN IV SEE I/O RECORD Last administered on 06/05/16 10:26; Start 06/03/16 at 11:15; Stop 06/06/16 at 10:29; Status DC Heparin Sodium (Porcine) 3,350 unit PRN Q6HRS PRN IV FOR UFH LEVEL LESS THAN 0.2; Start 06/03/16 at 11:15; Stop 06/06/16 at 10:29; Status DC Heparin Sodium (Porcine) 1,700 unit PRN Q6HRS PRN IV FOR UFH LEVEL 0.2 - 0.29; Start 06/03/16 at 11:15; Stop 06/06/16 at 10:29; Status DC Info (Anti-Coagulation Monitoring By Pharmacy) 1 each PRN DAILY PRN MC SEE COMMENTS Last administered on 06/03/16 16:16; Start 06/03/16 at 14:45 Apixaban (Eliquis) 5 mg BID PO Last administered on 06/06/16 11:05; Start at 11:30 Active Scripts Active Pradaxa (Dabigatran Etexilate Mesylate) 150 Mg Capsule 0.5 Cap PO BID Reported Tylenol (Acetaminophen) 325 Mg Tablet 1-2 Tab PO PRN QHS PRN Mason 5-325 Tablet (Acetaminophen/Hydrocodone Bitart) 1 Each Tablet 1 Tab PO TID Losartan Potassium 100 Mg Tablet 100 Mg PO DAILY Glimepiride 1 Mg Tablet 1 Mg PO DAILY Simvastatin 20 Mg Tablet 20 Mg PO HS Metoprolol Tartrate 50 Mg Tablet 50 Mg PO DAILY07 Hydrochlorothiazide Tablet (Hydrochlorothiazide) 25 Mg Tablet 25 Mg PO DAILY Vitals/I & O Vital Sign - Last 24 Hours 06/05/16 06/05/16 06/05/16 06/05/16 15:00 19:00 20:00 23:00 Temp 97.5 97.5 97.9 97.5 97.5 97.9 Pulse 63 64 73 Resp 22 16 16 B/P 105/70 148/57 131/81 Pulse Ox 96 95 95 O2 Delivery Room Air Room Air 06/06/16 06/06/16 06/06/16 06/06/16 03:00 07:33 08:00 08:53 Temp 97.6 97.5 97.6 97.5 Pulse 66 63 63 Resp 16 18 B/P 106/63 140/67 140/67 Pulse Ox 95 95 O2 Delivery Room Air Room Air 06/06/16 06/06/16 08:57 10:11 Temp 97.7 97.7 Pulse 63 59 Resp 20 B/P 140/67 133/64 Pulse Ox 96 O2 Delivery Room Air Intake and Output 06/05/16 06/05/16 06/06/16 15:00 23:00 07:00 Intake Total 1560 ml 600 ml 500 ml Output Total 800 ml 450 ml Balance 1560 ml -200 ml 50 ml LOIDA PENNINGTON MD Jun 06, 2016 11:59
[2016-06-06 15:30] VITALS: BP 134/65
--- NOTE | 2016-06-06 18:23 | PDOC ---
PULMONARY PROGRESS NOTES Subjective pat feels better Vitals Vital Signs Date Time Temp Pulse Resp B/P Pulse Ox O2 Delivery O2 Flow Rate FiO2 06/06/16 15:30 96.3 67 16 134/65 95 Room Air 96.3 ROS: No Nausea, No Chest Pain, No Abdominal Pain, No Increase Cough Lungs: Clear Cardiovascular: S1 Abdomen: Soft Neuro Exam: Alert Extremities: No Edema Labs Laboratory Tests Test 06/04/16 19:30 06/04/16 20:39 06/05/16 07:30 06/05/16 08:17 Heparin Anti-Xa Act, Unfractionated 0.43IU/mL (0.30-0.70) 0.38IU/mL (0.30-0.70) Glucose (Fingerstick) 196mg/dL (70-99) 127mg/dL (70-99) White Blood Count 6.9x10^3/uL (4.0-11.0) Red Blood Count 5.01x10^6/uL (3.50-5.40) Hemoglobin 14.9g/dL (12.0-15.5) Hematocrit 45.4% (36.0-47.0) Mean Corpuscular Volume 91fL (79-100) Mean Corpuscular Hemoglobin 30pg (25-35) Mean Corpuscular Hemoglobin Concent 33g/dL (31-37) Red Cell Distribution Width 13.5% (11.5-14.5) Platelet Count 177x10^3/uL (140-400) Sodium Level 142mmol/L (136-145) Potassium Level 3.8mmol/L (3.5-5.1) Chloride Level 105mmol/L (98-107) Carbon Dioxide Level 27mmol/L (21-32) Anion Gap 10 (6-14) Blood Urea Nitrogen 32mg/dL (7-20) Creatinine 1.4mg/dL (0.6-1.0) Estimated GFR (Cockcroft-Gault) 35.5 Glucose Level 158mg/dL (70-99) Calcium Level 9.6mg/dL (8.5-10.1) Test 06/05/16 11:00 06/05/16 16:12 06/05/16 20:58 06/06/16 05:20 Glucose (Fingerstick) 192mg/dL (70-99) 119mg/dL (70-99) 196mg/dL (70-99) Heparin Anti-Xa Act, Unfractionated 0.32IU/mL (0.30-0.70) Test 06/06/16 07:57 06/06/16 11:24 06/06/16 16:19 Glucose (Fingerstick) 143mg/dL (70-99) 155mg/dL (70-99) 112mg/dL (70-99) Laboratory Tests Test 06/05/16 20:58 06/06/16 05:20 06/06/16 07:57 06/06/16 11:24 Glucose (Fingerstick) 196mg/dL (70-99) 143mg/dL (70-99) 155mg/dL (70-99) Heparin Anti-Xa Act, Unfractionated 0.32IU/mL (0.30-0.70) Test 06/06/16 16:19 Glucose (Fingerstick) 112mg/dL (70-99) Medications Active Scripts Medications Dose Route/Sig Days Date Category Pradaxa (Dabigatran Etexilate Mesylate) 150 Mg Capsule 0.5 Cap PO BID 06/01/16 Rx Tylenol (Acetaminophen) 325 Mg Tablet 1-2 Tab PO PRN QHS PRN 05/31/16 Reported Kathleen 5-325 Tablet (Acetaminophen/Hydrocodone Bitart) 1 Each Tablet 1 Tab PO TID 02/21/16 Reported Losartan Potassium 100 Mg Tablet 100 Mg PO DAILY 02/19/16 Reported Glimepiride 1 Mg Tablet 1 Mg PO DAILY 02/19/16 Reported Simvastatin 20 Mg Tablet 20 Mg PO HS 02/19/16 Reported Metoprolol Tartrate 50 Mg Tablet 50 Mg PO DAILY07 02/19/16 Reported Hydrochlorothiazide Tablet (Hydrochlorothiazide) 25 Mg Tablet 25 Mg PO DAILY 02/19/16 Reported Impression . 1. Acute pulmonary embolism 2. No significant history of tobacco use. 3. History of multiple cancers including breast cancer, renal cancer and melanoma, all reportedly in remission per history. no sigh of new disease on current CT 4. Left DVT Plan . D/C HEPARIN ON ELIQUIS IF CONTINUE TO DO WELL D/C IN [facility] MD Jun 06, 2016 18:23
[2016-06-06 19:59] VITALS: BP 123/69
[2016-06-06] MEDS: ZOLPIDEM 5 MG TABLET. PO SCH (20:36)
[2016-06-06] MEDS: SIMVASTATIN 20 MG TABLET PO SCH (20:36)
[2016-06-06 23:58] VITALS: BP 146/68
[2016-06-07 03:59] VITALS: BP 149/68
[2016-06-07 05:43] LABS: HEMATOCRIT 43.6 % (36.0-47.0); HEMOGLOBIN 14.2 g/dL (12.0-15.5); RED BLOOD COUNT 4.74 x10^6/uL (3.50-5.40); RED CELL DISTRIBUTION WIDTH 13.8 % (11.5-14.5)
[2016-06-07 07:00] VITALS: BP 140/67
[2016-06-07] MEDS: HYDROCHLOROTHIAZIDE 25 MG TABLET PO SCH (07:41)
[2016-06-07] MEDS: GLIMEPIRIDE 2 MG TABLET PO SCH (07:42)
[2016-06-07] MEDS: METOPROLOL TART IMMED RELEASE 50 MG TABLET PO SCH (07:42)
[2016-06-07] MEDS: LOSARTAN POTASSIUM 50 MG TABLET. PO SCH (07:43)
[2016-06-07] MEDS: APIXABAN 5 MG TABLET. PO SCH (07:43)
[2016-06-07 10:51] VITALS: BP 129/54
[2016-06-07] MEDS ORDERED: APIX5TAB PO (12:04)
[2016-06-07] MEDS: ANTI-COAG MONITOR BY PHARMACY. MC PRN (13:18)
--- NOTE | 2016-06-08 02:36 | DS ---
DATE OF DISCHARGE: 06/07/2016 DISCHARGE DIAGNOSES: 1. Hypoxic respiratory failure, resolved. 2. History of renal cell carcinoma, solitary kidney. 3. Unprovoked episode of pulmonary embolism. 4. 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 BRIEF HOSPITAL COURSE: This is an 89-year-old female patient admitted to the hospital for shortness of breath for nearly 2 weeks. She was diagnosed with new onset pulmonary embolism and initially she was started on Lovenox and later she was evaluated by Pulmonology. During hospitalization, she was on heparin and later has been changed to Eliquis at the time of discharge. Her echocardiogram showed LV ejection fraction of 55-60%, no wall motion abnormalities. Today, she deemed clinically stable enough to go home and follow up with primary care doctor, Dr. Reji Stallworth, for further workup and ____ management. She has been educated on the risks, benefits and alternatives of oral anticoagulation. The patient is ____ with her condition. She is aware of her complications and risks with oral anticoagulation and has been on Coumadin. New script sent to pharmacy, which has been verified. DISCHARGE EXAMINATION: GENERAL: Alert, oriented x 3. HEART: S1, S2 present. LUNGS: Anterior chest clear. ABDOMEN: Soft, nontender, no organomegaly. EXTREMITIES: No edema. DISCHARGE DISPOSITION: Home. DISCHARGE CONDITION: Stable. DISCHARGE MEDICATIONS: New medication Eliquis 5 mg p.o. b.i.d. DISCHARGE FOLLOWUP: With Dr. Reji Stallworth in 2-4 weeks. DISCHARGE DIET: Regular diet. Total time spent for discharge is 32 minutes for patient education, counseling, and coordination of care. LOIDA PENNINGTON MD DR: DENNY/alisa JOB#: [id number] / [id number] NAYELI
== END 2016-06-07 13:15 | disposition home or self-care (01) | DRG 175 ==
LOC: ER 17:14 → 5 SOUTH 20:40
PROVIDERS: ADMIT Internal Medicine Hematology & Oncology; ATTEND Internal Medicine Hematology & Oncology
DX: I26.99 Other pulmonary embolism without acute cor pulmonale (principal); J96.91 Respiratory failure, unspecified with hypoxia; E10.9 Type 1 diabetes mellitus without complications; E78.00 Pure hypercholesterolemia, unspecified; E78.5 Hyperlipidemia, unspecified; Z96.659 Presence of unspecified artificial knee joint; I10 Essential (primary) hypertension; Z79.4 Long term (current) use of insulin; Z82.49 Family history of ischemic heart disease and other diseases of the circulatory system; Z85.3 Personal history of malignant neoplasm of breast; Z85.528 Personal history of other malignant neoplasm of kidney; Z85.820 Personal history of malignant melanoma of skin; Z90.49 Acquired absence of other specified parts of digestive tract; Z90.5 Acquired absence of kidney; Z92.3 Personal history of irradiation; Z90.710 Acquired absence of both cervix and uterus; Z88.0 Allergy status to penicillin
CPT/HCPCS: 36415; 71010; 71250; 74176; 78582; 80048; 80053; 81001; 82947; 83880; 84484; 85027; 85379; 85520; 85610; 85730; 86300; 87804; 93005; 93306; 93970; 94620; 96374; A9540; A9558; J1650; J7030; 99285-25

== ENCOUNTER → 2016-07-11 | Outpatient (CLI) | payer MEDICARE, BC ==
[~2016-07-11] MED LIST changes: +ACET325T9 PO; +APIX5TAB PO; +DABI150C PO
--- NOTE | 2016-07-11 13:30 | RAD ---
Right breast ultrasound, 07/11/2016: History: Follow-up probably benign nodule A targeted ultrasound exam of the right breast was performed at the 4:00 location. Comparison is made to a study from 01/11/2016. Again noted is a small hypoechoic nodule. It is slightly wider than tall. There are mildly heterogeneous internal echoes. No color flow is seen within this nodule. It measures 5 x 2 x 3 mm and has shown no definite change since the previous study. This is probably a complicated cyst. No other abnormality is seen in this region of the breast. IMPRESSION: Stable, probably benign nodule as described above. Further sonographic surveillance in 6 months at the time of the patient's yearly mammography is suggested. BI-RADS 3-probably benign findings
== END | disposition home or self-care (01) ==
LOC: KCIC US 12:49
PROVIDERS: ATTEND Internal Medicine
DX: R92.8 Other abnormal and inconclusive findings on diagnostic imaging of breast (principal)
CPT/HCPCS: 76641

== ENCOUNTER → 2017-01-23 | Outpatient (CLI) | payer MEDICARE, BC ==
--- NOTE | 2017-01-23 11:21 | KCIC ---
DATE: 01/23/2017. EXAM: MAMMO SOPHIA DIAG BILAT, ULTRASOUND BREAST RIGHT. HISTORY: Personal history of left breast cancer status post breast conservation therapy. Undergoing follow-up for right breast nodule, yearly surveillance. COMPARISON: 01/04/2016, 07/10/2009, 07/11/2016. This study was interpreted with the benefit of Computerized Aided Detection (CAD). FINDINGS: The breast parenchyma shows scattered fibroglandular densities. Breast parenchyma level B.. The nodule of prior concern medially and inferiorly on the right appears stable. Post breast conservation therapy changes are also stable slightly superiorly and laterally on the left. Scattered, coarse or round calcifications are stable and benign. There are no suspicious masses, microcalcifications or architectural distortion. Sonography of the right breast was performed at the site of concern at the 4:00 position 5 cm from the nipple. This again reveals a small septated cystic lesion currently measured at 6 x 3 x 6 mm. There is no clear interval change in size given measurement on similar slices. There is no internal flow or suspicious solid component. BI-RADS CATEGORY: 2 BENIGN FINDING(S). RECOMMENDED FOLLOW-UP: 12M 12 MONTH FOLLOW-UP. The small nodule medially can be followed when the patient returns for yearly surveillance mammography. PQRS compliance statement: Patient information was entered into a reminder system with a target due date 01/23/2018 for the next mammogram. Mammography is a sensitive method for finding small breast cancers, but it does not detect them all and is not a substitute for careful clinical examination. A negative mammogram does not negate a clinically suspicious finding and should not result in delay in biopsying a clinically suspicious abnormality. "Our facility is accredited by the [employer] Mammography Program."
== END | disposition home or self-care (01) ==
LOC: KCIC MAMMO 09:36
PROVIDERS: ATTEND Internal Medicine
DX: N63.20 Unspecified lump in the left breast, unspecified quadrant (principal)
CPT/HCPCS: 76641; G0204; G0279; 77062; 77066